=== PATIENT | female | born 1935 | race African-American/Black ===

== ENCOUNTER 2016-09-22 22:23 | Inpatient (IN) | payer MEDICARE, OTHER ==
[~2016-09-22] VITALS: Ht 154.9 cm; Wt 66.0 kg
[2016-09-22 22:40] VITALS: BP 224/102; PULSE 71; RESP 18; TEMP 98.6; O2SAT 97
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
[2016-09-23 00:07] LABS: AUTOMATED NEUTROPHIL # 2.5 TH/MM3 (1.8-7.7); BASOPHIL % 0.5 % (0.0-2.0); EOSINOPHIL # 0.1 TH/MM3 (0-0.4); EOSINOPHIL % 1.4 % (0.0-4.0); HEMATOCRIT 35.4 % (35.0-46.0); HEMO FLAGS DIFF FINAL; LYMPH % 31.9 % (9.0-44.0); LYMPHOCYTE # 1.3 TH/MM3 (1.0-4.8); MEAN CELL VOLUME 90.6 FL (80.0-100.0); MEAN CORPUSCULAR HGB CONC 33.1 % (32.0-36.0); MONO % 7.1 % (0.0-8.0); NEUT % 59.1 % (16.0-70.0); PLATELET COUNT 211 TH/MM3 (150-450); RED BLOOD COUNT 3.91 MIL/MM3 (4.00-5.30); RED CELL DISTRIBUTION WIDTH 16.2 % (11.6-17.2); WHITE BLOOD COUNT 4.2 TH/MM3 (4.0-11.0)
[2016-09-23 00:15] LABS: ALT (GPT) 18 U/L (10-53); ANION GAP 7 MEQ/L (5-15); AST (GOT) 19 U/L (15-37); BICARBONATE 29.3 MEQ/L (21.0-32.0); BLOOD UREA NITROGEN 8 MG/DL (7-18); CHLORIDE 105 MEQ/L (98-107); GLOMERULAR FILTRATION RATE 86 ML/MIN (>89); SODIUM (NA) 141 MEQ/L (136-145)
[2016-09-23 00:16] LABS: BLOOD, URINE NEG (NEG); GLUCOSE,URINE NEG (NEG); KETONE, URINE NEG (NEG); NITRITE,URINE NEG (NEG); SQUAMOUS EPITHELIAL CELL URINE <1 /hpf (0-5); URINE COLOR LIGHT-YELLOW (YELLW/STRAW)
[2016-09-23 00:17] LABS: ALKALINE PHOSPHATASE 110 U/L (45-117); TOTAL BILIRUBIN ADULT 0.4 MG/DL (0.2-1.0)
[2016-09-23 00:20] LABS: ALCOHOL LESS THAN 3 MG/DL (0-5)
[2016-09-23 00:22] LABS: COMMENT (UR) CULT NOT INDICATED; CULTURE IF INDICATED CULT NOT INDICATED
[2016-09-23 04:00] VITALS: BP 230/109; PULSE 86; RESP 18
[2016-09-23] MEDS ORDERED: amLODIPine BESYLATE 5 MG TAB PO ONE (04:00)
[2016-09-23 06:04] VITALS: BP 179/86
[2016-09-23 07:58] VITALS: BP 180/88; PULSE 84; RESP 17; O2SAT 97
[2016-09-23] MEDS ORDERED: ACETAMINOPHEN 325 MG TAB PO PRN (13:15)
[2016-09-23] MEDS ORDERED: LORazepam 1 MG TAB PO PRN (13:15)
[2016-09-23] MEDS ORDERED: LORazepam 0.5 MG TAB PO PRN (13:15)
[2016-09-23] MEDS ORDERED: ALUMINUM/MAGNESIUM/SIMETH 30 ML CUP PO PRN (13:15)
[2016-09-23] MEDS ORDERED: MAGNESIUM HYDROXIDE SUSP 30 ML CUP PO PRN (13:15)
[2016-09-23] MEDS ORDERED: LORazepam 2 MG/ML VIAL IM PRN ×2 (13:15)
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
[2016-09-23 14:05] VITALS: BP 182/84; PULSE 88; RESP 17; O2SAT 97
[2016-09-23 14:15] VITALS: BP 204/109; PULSE 69; RESP 19; TEMP 99.3; O2SAT 97
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
[2016-09-24 05:59] VITALS: BP 169/93; PULSE 66; RESP 16; TEMP 96.7; O2SAT 99
[2016-09-24 06:00] VITALS: RESP 16
[2016-09-24] MEDS ORDERED: ALUMINUM/MAGNESIUM/SIMETH 30 ML CUP PO PRN (10:15)
[2016-09-24] MEDS ORDERED: MAGNESIUM HYDROXIDE SUSP 30 ML CUP PO PRN (10:15)
[2016-09-24] MEDS ORDERED: ACETAMINOPHEN 325 MG TAB PO PRN (10:15)
[2016-09-24] MEDS ORDERED: risperiDONE 0.5 MG TAB PO SCH (11:00)
--- NOTE | 2016-09-24 11:14 | EKG ---
Date Performed: 09/23/2016 Time Performed: 14:15:31 PTAGE: 80 years EKG: SINUS BRADYCARDIA POSSIBLE RIGHT VENTRICULAR CONDUCTION DELAY MINIMAL VOLTAGE CRITERIA FOR LVH, CONSIDER NORMAL VARIANT BORDERLINE ECG NO PREVIOUS TRACING DOCTOR: Praveen Arvizu Interpretating Date/Time 09/24/2016 11:12:26
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
[2016-09-24 19:24] VITALS: BP 102/55; PULSE 74; RESP 18; TEMP 97.8; O2SAT 98
[2016-09-25 06:05] VITALS: BP 168/88; PULSE 86; RESP 14; TEMP 97.7; O2SAT 97
--- NOTE | 2016-09-25 13:22 | HHI.PR ---
Subjective Remarks Uncontrolled HTN. Patient was noted with elevated BP, started meds. She is in the chair, denies any motor or sensory deficit. no headache or change in vision. No n/v/d/c. Denies chest pain or sob. Objective Vitals Vital Signs Date Time Temp Pulse Resp B/P Pulse Ox O2 Delivery O2 Flow Rate FiO2 09/25/16 06:05 97.7 86 14 168/88 97 09/24/16 19:24 97.8 74 18 102/55 98 I/O 09/24/16 09/24/16 09/24/16 09/25/16 09/25/16 09/25/16 07:00 15:00 23:00 07:00 15:00 23:00 Intake Total 240 ml 240 ml 360 ml Balance 240 ml 240 ml 360 ml Intake Oral 240 ml 240 ml 360 ml # Voids 2 Result Diagram: 09/22/16 2345 09/22/16 2345 Objective Remarks GENERAL: Awake and alert oriented to person well-developed patient, in no apparent distress. CARDIOVASCULAR: Regular rhythm without murmurs, gallops, or rubs. Heart rate 58/m RESPIRATORY: Clear to auscultation. Breath sounds equal bilaterally. No wheezes , rales, or rhonchi. GASTROINTESTINAL: Abdomen soft, non-tender, nondistended. No hepato-splenomegaly , or palpable masses. No guarding. MUSCULOSKELETAL: Extremities without clubbing, cyanosis, or edema. No joint tenderness, effusion, or edema noted. No calf tenderness. Negative Homans sign bilaterally. NEUROLOGICAL: Awake and alert. Cranial nerves II through XII intact. Motor and sensory grossly within normal limits. Five out of 5 muscle strength in all muscle groups. Normal speech. Gait slow but steady A/P Assessment and Plan 80-year-old female admitted for Dementia - psychiatry following Hypertension uncontrolled - patient denies any history but unreliable. no family at bedside. EKG no ischemic changes. Chest x-ray reviewed no infiltrates Patient received amlodipine 5 mg by mouth at the ER will monitor. Start amlodipine 5 mg po daily as BP in uncontrolled. Monitor and adjust meds as indicated Heart healthy diet Thank you for this consult we'll follow patient in-house with you Discussed with the patient, nurse. Arleth Lara MD Sep 25, 2016 13:22
[2016-09-25] MEDS: amLODIPine BESYLATE 5 MG TAB PO SCH (13:32)
--- NOTE | 2016-09-25 15:06 | HHI.PYPN ---
Subjective Remarks Patient seen in her room with medical student Krista. Patient calm, quite soft spoken, but cooperative. When discussing her living situation she did state that her grandson might be HARM HER. SHE IS SOMEWHAT CONFUSED ALSO ABOUT HER SON AND WAS GOING ON WITH HIM. SHE IS SHOWING MIXED COMPLIANCE WITH MEDICATION. FOR NOW CONTINUE TREATMENT Review of Systems Except as stated in HPI: all other systems reviewed are Neg Objective Alert: Yes [place]: Person, Place, Date (vaguely) Mood: Calm, Other (vigilant) Affect: Other (slight decreased range and intensity) Memory Intact: Comment (poor) Hallucinations: Other (denies) Delusions: Yes Delusion Type: Paranoid (vague feeling grandson may be poisoning her) Suicidal: Ideation (denies) Homicidal: Ideation (denies) Insight/Judgment Poor Vitals/IOs Vital Signs Date Time Temp Pulse Resp B/P Pulse Ox O2 Delivery O2 Flow Rate FiO2 09/25/16 06:05 97.7 86 14 168/88 97 09/23/16 14:05 Room Air Intake and Output 09/24/16 09/24/16 09/25/16 08:00 16:00 00:00 Intake Total 240 ml 240 ml Balance 240 ml 240 ml Assessment & Plan Problem List: (1) Dementia in other diseases classified elsewhere with behavioral disturbance ICD Code: F02.81 (2) Alzheimer's dementia with behavioral disturbance ICD Code: G30.8 Assessment & Plan Estimated LOS: days patient continues confused and demented in no behavior problems noted at this time from now continue treatment Justification for Cont. Inpt. At this time patient would decompensate in place to the lower level of care Discharge Planning To be determined Magdy Blackwood MD Sep 25, 2016 15:06
[2016-09-25 16:24] VITALS: BP 189/88; PULSE 51; RESP 18; TEMP 97.5; O2SAT 97
[2016-09-25 20:00] VITALS: BP 159/81
[2016-09-26 06:00] VITALS: BP 153/70; PULSE 59; RESP 18; TEMP 97.4; O2SAT 97
[2016-09-26] MEDS: amLODIPine BESYLATE 5 MG TAB PO SCH ×3 (09:49→11:40)
[2016-09-26 18:00] VITALS: BP 184/87; PULSE 56; TEMP 98.7; O2SAT 95
--- NOTE | 2016-09-26 20:31 | HHI.PYPN ---
Subjective Remarks Pt seen and discussed with staff. SHe refused medications and labs today. No agitation or behavioral problems.She has been isolative to her room but comes out into milieu occasionally. Objective Alert: Yes [place]: Person Mood: Calm, Other (vigilant) Affect: Other (slight decreased range and intensity) Memory Intact: Comment (poor) Hallucinations: Other (denies) Delusions: Yes Delusion Type: Paranoid (vague feeling grandson may be poisoning her) Suicidal: Ideation (denies) Homicidal: Ideation (denies) Insight/Judgment poor Vitals/IOs Vital Signs Date Time Temp Pulse Resp B/P Pulse Ox O2 Delivery O2 Flow Rate FiO2 09/26/16 06:00 97.4 59 18 153/70 97 09/23/16 14:05 Room Air Intake and Output 09/25/16 09/25/16 09/25/16 07:59 15:59 23:59 Intake Total 360 ml 1560 ml 720 ml Balance 360 ml 1560 ml 720 ml Assessment & Plan Problem List: (1) Dementia in other diseases classified elsewhere with behavioral disturbance ICD Code: F02.81 (2) Alzheimer's dementia with behavioral disturbance ICD Code: G30.8 Assessment & Plan Continue current tx plan. Estimated LOS: days Justification for Cont. Inpt. risk of decompensation Tiffani Trejo MD Sep 26, 2016 20:30
[2016-09-26 21:00] VITALS: BP 227/99; PULSE 58; RESP 18; O2SAT 95
[2016-09-26] MEDS ORDERED: NITROGLYCERIN 2% OINT 1 GM PACKET TOPICAL ONE (21:30)
[2016-09-26 23:00] VITALS: BP 164/92; PULSE 66
[2016-09-27 06:00] VITALS: BP 137/67; PULSE 71; RESP 16; TEMP 97.7; O2SAT 95
--- NOTE | 2016-09-27 16:17 | HHI.PYPN ---
Subjective Remarks Pt seen and discussed with staff. She refused to come out for breakfast and has been refusing medications, but did take norvasc. She insists that she does not need any type of medication. No behavioral problems. Objective Alert: Yes [place]: Person Mood: Calm Affect: Other (slight decreased range and intensity) Memory Intact: Comment (poor) Hallucinations: Other (denies) Delusions: Yes Delusion Type: Paranoid Suicidal: Ideation (denies) Homicidal: Ideation (denies) Insight/Judgment poor Vitals/IOs Vital Signs Date Time Temp Pulse Resp B/P Pulse Ox O2 Delivery O2 Flow Rate FiO2 09/27/16 06:00 97.7 71 16 137/67 95 09/23/16 14:05 Room Air Intake and Output 09/26/16 09/26/16 09/27/16 08:00 16:00 00:00 Intake Total 720 ml Balance 720 ml Assessment & Plan Problem List: (1) Dementia in other diseases classified elsewhere with behavioral disturbance ICD Code: F02.81 (2) Alzheimer's dementia with behavioral disturbance ICD Code: G30.8 Assessment & Plan Continue current tx plan. Estimated LOS: days Justification for Cont. Inpt. risk of decompensation Tiffani Trejo MD Sep 27, 2016 16:17
[2016-09-27 18:00] VITALS: BP 203/91; PULSE 66; RESP 18; TEMP 98.2; O2SAT 100
[2016-09-27 18:53] VITALS: BP 96/51; PULSE 84; RESP 17; TEMP 98.2; O2SAT 97
[2016-09-27 20:05] VITALS: BP 184/94
--- NOTE | 2016-09-28 09:38 | HHI.PYPN ---
Subjective Remarks Patient seen in her room with nurse Priyanka, chart reviewed, patient showing mixed compliance with medication. Patient continues to isolate sitting for extended periods of time in her room. At times resistant to treatment. Though no other significant behavioral problems. She continues delusional confused related to experiences with her grandson and her son. We'll be meeting with treatment team later today. For now continue treatment Review of Systems Except as stated in HPI: all other systems reviewed are Neg Objective Alert: Yes [place]: Person Mood: Calm Affect: Other (slight decreased range and intensity) Memory Intact: Comment (poor) Hallucinations: Other (denies) Delusions: Yes Delusion Type: Paranoid Suicidal: Ideation (denies) Homicidal: Ideation (denies) Insight/Judgment Very poor Vitals/IOs Vital Signs Date Time Temp Pulse Resp B/P Pulse Ox O2 Delivery O2 Flow Rate FiO2 09/27/16 20:05 184/94 09/27/16 18:53 98.2 84 17 97 Intake and Output 09/27/16 09/27/16 09/27/16 07:59 15:59 23:59 Intake Total 1200 ml Balance 1200 ml Assessment & Plan Problem List: (1) Dementia in other diseases classified elsewhere with behavioral disturbance ICD Code: F02.81 (2) Alzheimer's dementia with behavioral disturbance ICD Code: G30.8 Assessment & Plan Estimated LOS: days patient continues confused and disoriented. With significant isolation. Spending long periods of time in her room. Mixed compliance with medication. Justification for Cont. Inpt. At this time patient will decompensate placed in the lower level of care Discharge Planning To be determined Magdy Blackwood MD Sep 28, 2016 09:38
[2016-09-28 09:53] VITALS: BP 173/86; PULSE 61
[2016-09-28] MEDS: amLODIPine BESYLATE 5 MG TAB PO SCH (09:55)
[2016-09-28 11:37] VITALS: BP 151/74; PULSE 54
[2016-09-28] MEDS ORDERED: REMOVE OLD PATCH T-DERMAL SCH (14:00)
[2016-09-28] MEDS ORDERED: cloNIDine HCL 0.1 MG/24 HR PATCH T-DERMAL SCH (14:00)
--- NOTE | 2016-09-28 15:46 | PD.TTN ---
Present for Treatment Team Treatment Team Staff: Provider (Dr Blackwood ), Nurse (Priyanka ), Psych Therapist (Lavern), Occupational Therapist (Myrna) Patient Problems 1. Discharge planning 2. Medication compliance 3. Knowledge deficit 4. Lack of coping skills Progress Toward Goals Provider Input: Provider wanted to know about placement vs going back home discussed meds with nurse as family does not want Risperdal Nurse Input: Nurse said still no consent for Risperdal pt is overall calm and compliant at times confused and at times appearing alert and oriented Psych Therapist Input: family called and wanted to know what happened and if pt is being placed in snf they believe they can no longer care for her Occupational Therapist Input: somewhat seclusive came to some groups Lavern Angelo YARD SUPERVISOR Sep 28, 2016 15:46
--- NOTE | 2016-09-28 17:54 | HHI.PR ---
Subjective Remarks Patient denies cp/sob denies headache or dizziness bp has been elevated - as per RN patient refusing her antihypertensive medication over the weekend. patient is seclusive - denied to go out to dinner Objective Vitals Vital Signs Date Time Temp Pulse Resp B/P Pulse Ox O2 Delivery O2 Flow Rate FiO2 09/28/16 11:37 54 151/74 09/28/16 09:53 61 173/86 09/27/16 20:05 184/94 09/27/16 18:53 98.2 84 17 96/51 97 09/27/16 18:00 98.2 66 18 203/91 100 I/O 09/27/16 09/27/16 09/27/16 09/28/16 09/28/16 09/28/16 06:59 14:59 22:59 06:59 14:59 22:59 Intake Total 1200 ml 480 ml Output Total 2 ml Balance 1200 ml -2 ml 480 ml Intake Oral 1200 ml 480 ml Output Urine Total 2 ml # Voids 2 2 Objective Remarks refused examination. Medications and IVs Current Medications Medications (Trade) Dose Ordered Sig/Kp Route Start Time Stop Time Status Last Admin (Ativan) 0.5 mg Q12H PRN PO 09/23/16 13:15 Hold (Ativan Inj) 0.5 mg Q12H PRN IM 09/23/16 13:15 Hold (Tylenol) 650 mg Q4H PRN PO 09/24/16 10:15 (Milk Of Magnesia Liq) 30 ml DAILY PRN PO 09/24/16 10:15 (Mag-Al Plus Susp Liq) 30 ml Q6H PRN PO 09/24/16 10:15 (risperDAL) 0.5 mg BID PO 09/24/16 11:00 Hold (Norvasc) 5 mg DAILY PO 09/25/16 10:00 09/28/16 09:55 (Catapres-Tts 0.1mg Patch.7d) 1 patch Q7D T-DERMAL 09/28/16 14:00 09/28/16 15:29 Miscellaneous Information 1 Q7D T-DERMAL 09/28/16 14:00 A/P Assessment and Plan 80-year-old female admitted for Dementia - psychiatry following Hypertension uncontrolled - patient denies any history but unreliable. no family at bedside. EKG no ischemic changes. Chest x-ray reviewed no infiltrates Heart healthy diet 09/28 Patient started on amlodipine but refused to take it. BP severely elevated and uncontrolled into the SBP 180's. DC amlopdipine and start Clonidine patch. Continue to monitor BP Tyrell Briones MD Sep 28, 2016 17:54
--- NOTE | 2016-09-29 10:03 | HHI.PYPN ---
Subjective Remarks Patient seen in the meza with nurse Sinai, counselor Lavern, and medical student Krista. Patient angry irritable stubborn. Standing at a very irritable attitude stating "I want to go home "refusing to take direction from floor staff. Though she showing no aggressive type behaviors. Family has refused to give permission for Respinol. We'll discontinue that and offer Seroquel 25 mg 9 AM and 4 PM. With permission of health care surrogate/guardian advocate Review of Systems Except as stated in HPI: all other systems reviewed are Neg Objective Alert: Yes [place]: Person Mood: Calm Affect: Other (slight decreased range and intensity) Memory Intact: Comment (poor) Hallucinations: Other (denies) Delusions: Yes Delusion Type: Paranoid Suicidal: Ideation (denies) Homicidal: Ideation (denies) Insight/Judgment Very poor Vitals/IOs Vital Signs Date Time Temp Pulse Resp B/P Pulse Ox O2 Delivery O2 Flow Rate FiO2 09/28/16 11:37 54 151/74 09/27/16 18:53 98.2 17 97 Intake and Output 09/28/16 09/28/16 09/29/16 08:00 16:00 00:00 Intake Total 240 ml 240 ml 1680 ml Output Total 2 ml Balance 238 ml 240 ml 1680 ml Assessment & Plan Problem List: (1) Dementia in other diseases classified elsewhere with behavioral disturbance ICD Code: F02.81 (2) Alzheimer's dementia with behavioral disturbance ICD Code: G30.8 Assessment & Plan Estimated LOS: days patient continues confused demented, with some increased irritability and stubbornness today stated that she wanted to be sent home. She medication suggestion above Justification for Cont. Inpt. At this time patient will decompensate if placed in a lower level of care Discharge Planning To be determined Magdy Blackwood MD Sep 29, 2016 10:03
[2016-09-29] MEDS: QUEtiapine FUMARATE 25 MG TAB PO SCH (16:48)
--- NOTE | 2016-09-29 16:56 | HHI.PR ---
Subjective Remarks Bp seems to be improving denies cp/sob denies dizziness states "I am fine" Objective Vitals I/O 09/28/16 09/28/16 09/28/16 09/29/16 09/29/16 09/29/16 07:00 15:00 23:00 07:00 15:00 23:00 Intake Total 480 ml 1680 ml 480 ml Output Total 2 ml 1 ml Balance -2 ml 480 ml 1680 ml 479 ml Intake Oral 480 ml 1680 ml 480 ml Output Urine Total 2 ml 1 ml # Voids 6 1 # Bowel Movements 0 Objective Remarks refused examination. Medications and IVs Current Medications Medications (Trade) Dose Ordered Sig/Kp Route Start Time Stop Time Status Last Admin (Ativan) 0.5 mg Q12H PRN PO 09/23/16 13:15 Hold (Ativan Inj) 0.5 mg Q12H PRN IM 09/23/16 13:15 Hold (Tylenol) 650 mg Q4H PRN PO 09/24/16 10:15 (Milk Of Magnesia Liq) 30 ml DAILY PRN PO 09/24/16 10:15 (Mag-Al Plus Susp Liq) 30 ml Q6H PRN PO 09/24/16 10:15 (Catapres-Tts 0.1mg Patch.7d) 1 patch Q7D T-DERMAL 09/28/16 14:00 09/28/16 15:29 Miscellaneous Information 1 Q7D T-DERMAL 09/28/16 14:00 (SEROquel) 25 mg BID@09,16 PO 09/29/16 16:00 09/29/16 16:48 A/P Assessment and Plan 80-year-old female admitted for Dementia - psychiatry following Hypertension uncontrolled - patient denies any history but unreliable. no family at bedside. EKG no ischemic changes. Chest x-ray reviewed no infiltrates Heart healthy diet 09/28 Patient started on amlodipine but refused to take it. BP severely elevated and uncontrolled into the SBP 180's. DC amlopdipine and start Clonidine patch. Continue to monitor BP. 09/29 BP improving but still elevated - Continue Clonidine patch at same dose for now. Tyrell Briones MD Sep 29, 2016 16:56
[2016-09-29 18:45] VITALS: BP 84/0
[2016-09-29 19:45] VITALS: BP 80/0
[2016-09-29 19:50] VITALS: BP 82/52; PULSE 48; O2SAT 96
[2016-09-29 20:21] VITALS: BP 158/82; PULSE 60; RESP 18
[2016-09-29] MEDS ORDERED: SODIUM CHLORIDE 0.9% 500 ML IV ONE (20:30)
[2016-09-29] MEDS ORDERED: MORPHINE SULFATE 4 MG/ML INJ IV PUSH ONE (20:30)
[2016-09-29] MEDS ORDERED: NITROGLYCERIN 0.4 MG SL 25 TABS/BTL SL PRN (20:30)
--- NOTE | 2016-09-29 20:50 | RADRPT ---
EXAM DATE/TIME: 09/29/2016 20:25 [facility] COMPARISON: No previous studies available for comparison. INDICATIONS : Shortness of breath. MEDICAL HISTORY : Dementia SURGICAL HISTORY : None. ENCOUNTER: Initial ACUITY: 1 day PAIN SCORE: 0/10 LOCATION: Bilateral chest FINDINGS: No infiltrate, effusion or pneumothorax demonstrated. Heart size within normal limits. Thoracic aorta is tortuous. CONCLUSION: No evidence of acute cardiopulmonary disease. Magdy Scales MD on September 29, 2016 at 20:48 Board Certified Radiologist. This report was verified electronically.
[2016-09-29] MEDS ORDERED: SODIUM CHLORIDE 0.9% 500 ML- REPEAT BAG IV ONE (21:00)
[2016-09-29 22:49] LABS: AUTOMATED NEUTROPHIL # 3.1 TH/MM3 (1.8-7.7); BASOPHIL % 0.8 % (0.0-2.0); EOSINOPHIL % 0.8 % (0.0-4.0); HEMATOCRIT 34.1 % (35.0-46.0); HEMO FLAGS DIFF FINAL; LYMPH % 19.4 % (9.0-44.0); LYMPHOCYTE # 0.8 TH/MM3 (1.0-4.8); MEAN CELL VOLUME 90.6 FL (80.0-100.0); MEAN CORPUSCULAR HEMOGLOBIN 29.6 PG (27.0-34.0); MEAN CORPUSCULAR HGB CONC 32.7 % (32.0-36.0); MONO % 6.9 % (0.0-8.0); NEUT % 72.1 % (16.0-70.0); PLATELET COUNT 185 TH/MM3 (150-450); RED BLOOD COUNT 3.76 MIL/MM3 (4.00-5.30); RED CELL DISTRIBUTION WIDTH 15.9 % (11.6-17.2); WHITE BLOOD COUNT 4.3 TH/MM3 (4.0-11.0)
[2016-09-29 23:13] LABS: ALT (GPT) 17 U/L (10-53); ANION GAP 5 MEQ/L (5-15); AST (GOT) 20 U/L (15-37); BICARBONATE 33.2 MEQ/L (21.0-32.0); BLOOD UREA NITROGEN 14 MG/DL (7-18); CHLORIDE 100 MEQ/L (98-107); GLOMERULAR FILTRATION RATE 87 ML/MIN (>89); POTASSIUM 3.8 MEQ/L (3.5-5.1); SODIUM (NA) 138 MEQ/L (136-145)
[2016-09-29 23:15] LABS: ALKALINE PHOSPHATASE 98 U/L (45-117); TOTAL BILIRUBIN ADULT 0.4 MG/DL (0.2-1.0)
[2016-09-29 23:26] LABS: CREATINE KINASE 63 U/L (26-192)
--- NOTE | 2016-09-30 00:15 | EKG ---
Date Performed: 09/29/2016 Time Performed: 21:14:20 PTAGE: 80 years EKG: SINUS BRADYCARDIA WITH FIRST DEGREE AV BLOCK ABNORMAL ECG PREVIOUS TRACING : 09/23/2016 14.15 Compared to prior tracing no significant change DOCTOR: Mono Maradiaga Interpretating Date/Time 09/30/2016 00:14:51
[2016-09-30 01:00] VITALS: BP 174/85; PULSE 51; RESP 17; TEMP 98.1; O2SAT 100
--- NOTE | 2016-09-30 02:25 | HHI.PR ---
Addendum to Inpatient Note Addendum Reason: Additional Documentation Additional Information S: Dr. Mcdermott notified me of Drew called in psychiatry unit at around 8pm on 09/29. Drew was called for hypotension. Apparently, the patient had refused vitals for the past 2 days. At 6:45 PM, patient was noted to be alert, oriented , and conversational with the nursing staff. Per nursing staff, her skin was warm and dry at that time. Then, at 7:45 PM, patient was noted to be sweaty and altered. Blood pressure was noted to be 86/52, with a heart rate in the 40s. Drew was called at that time. She had recently taken Seroquel for the first time around 4:48pm. Around when the DevynT was called, clonidine patch was removed. Patient does not answer my questions. O: Vitals: bp 86/52, pulse 50s, O2 sat > 95% on RA Gen: Elderly woman, diaphoretic, slumped over in chair HEENT: Moist mucous membranes Cardiovascular: Bradycardic rate and regular rhythm Respiratory: Lungs clear to auscultation bilaterally with transmitted upper airway sounds Extremities: Nontender, nonedematous A/P: 80-year-old female with a history of dementia and hypertension had DevynT called for hypotension most likely because of medication side effect. However, differential is broad and includes CVA, MT, PE, etc. EKG, chest x-ray, UA, blood culture, lactic acid, CMP, CBC, CT brain without IV contrast, troponin, CK-MB, CPK, normal saline IV bolus Transfer to [facility] psych unit Nurse to call patient's family Addendum: Spoke with Drew nurse after patient transfer. Apparently, patient blood pressure spontaneously improved as did her mental status. She suddenly became alert, oriented, conversational, and gave the Drew nurse to [facility] prior to leaving. [facility] asked if we could d/c the CT of the head. I agreed that it was no longer indicated at this time. Ric Gaines MD R2 Sep 30, 2016 02:25
--- NOTE | 2016-09-30 02:36 | RADRPT ---
EXAM DATE/TIME: 09/30/2016 02:23 [facility] COMPARISON: No previous studies available for comparison. INDICATIONS : Altered mental status. RADIATION DOSE: 56.36 CTDIvol (mGy) MEDICAL HISTORY : Dementia. Cardiovascular disease Hypertension. SURGICAL HISTORY : None. ENCOUNTER: Initial ACUITY: 1 day PAIN SCALE: 0/10 LOCATION: cranial TECHNIQUE: Multiple contiguous axial images were obtained of the head. Using automated exposure control and adj ustment of the mA and/or kV according to patient size, radiation dose was kept as low as reasonably a chievable to obtain optimal diagnostic quality images. DICOM format image data is available electro nically for review and comparison. FINDINGS: CEREBRUM: The ventricles are normal for age. No evidence of midline shift, mass lesion, hemorrhage or acute in farction. Prominence and diffuse hypodensity in the supratentorial white matter. No extra-axial flu id collections are seen. POSTERIOR FOSSA: The cerebellum and brainstem are intact. The 4th ventricle is midline. The cerebellopontine angle i s unremarkable. EXTRACRANIAL: The visualized portion of the orbits is intact. SKULL: The calvaria is intact. No evidence of skull fracture. CONCLUSION: No acute findings. Significant hypodensity of the supratentorial white matter suggesting ischemic de myelination. Leodan Silverio MD on September 30, 2016 at 2:33 Board Certified Radiologist. This report was verified electronically.
[2016-09-30 05:49] VITALS: BP 149/67; PULSE 64; RESP 17; TEMP 98.3; O2SAT 97
--- NOTE | 2016-09-30 08:20 | HHI.PYPN ---
Subjective Remarks Patient seen in her room the floor staff, chart review, patient transferred last evening from 2500 to 4e because of labile severe hypertension with hypotensive episodes. Medicine service is now following patient daily and a dressing that issue. Patient seen by me today she is sitting calmly in her bed continues diffusely confused and disoriented. Though no behavioral problem. Patient compliant with her psychotropic medication. Patient at this time is scheduled for [place] [facility] tomorrow for now continue treatment Review of Systems Except as stated in HPI: all other systems reviewed are Neg Objective Alert: Yes [place]: Person Mood: Calm Affect: Other (slight decreased range and intensity) Memory Intact: Comment (poor) Hallucinations: Other (denies) Delusions: Yes Delusion Type: Paranoid Suicidal: Ideation (denies) Homicidal: Ideation (denies) Insight/Judgment Very poor Labs Test 09/29/16 22:34 White Blood Count 4.3 TH/MM3 Red Blood Count 3.76 MIL/MM3 Hemoglobin 11.1 GM/DL Hematocrit 34.1 % Mean Corpuscular Volume 90.6 FL Mean Corpuscular Hemoglobin 29.6 PG Mean Corpuscular Hemoglobin 32.7 % Concent Red Cell Distribution Width 15.9 % Platelet Count 185 TH/MM3 Mean Platelet Volume 8.8 FL Neutrophils (%) (Auto) 72.1 % Lymphocytes (%) (Auto) 19.4 % Monocytes (%) (Auto) 6.9 % Eosinophils (%) (Auto) 0.8 % Basophils (%) (Auto) 0.8 % Neutrophils # (Auto) 3.1 TH/MM3 Lymphocytes # (Auto) 0.8 TH/MM3 Monocytes # (Auto) 0.3 TH/MM3 Eosinophils # (Auto) 0.0 TH/MM3 Basophils # (Auto) 0.0 TH/MM3 CBC Comment DIFF FINAL Differential Comment Sodium Level 138 MEQ/L Potassium Level 3.8 MEQ/L Chloride Level 100 MEQ/L Carbon Dioxide Level 33.2 MEQ/L Anion Gap 5 MEQ/L Blood Urea Nitrogen 14 MG/DL Creatinine 0.77 MG/DL Estimat Glomerular Filtration 87 ML/MIN Rate Random Glucose 113 MG/DL Lactic Acid Level 1.8 mmol/L Calcium Level 8.7 MG/DL Total Bilirubin 0.4 MG/DL Aspartate Amino Transf 20 U/L (AST/SGOT) Alanine Aminotransferase 17 U/L (ALT/SGPT) Alkaline Phosphatase 98 U/L Total Creatine Kinase 63 U/L Troponin I LESS THAN 0.02 NG/ML Total Protein 7.1 GM/DL Albumin 3.3 GM/DL Date/Time Procedure Status Source Growth 09/29/16 22:34 Aerobic Blood Culture Received Blood Peripheral Pending 09/29/16 22:34 Anaerobic Blood Culture Received Blood Peripheral Pending Vitals/IOs Vital Signs Date Time Temp Pulse Resp B/P Pulse Ox O2 Delivery O2 Flow Rate FiO2 09/30/16 05:49 98.3 64 17 149/67 97 Intake and Output 09/29/16 09/29/16 09/30/16 08:00 16:00 00:00 Intake Total 0 ml 480 ml 480 ml Output Total 1 ml Balance 0 ml 479 ml 480 ml Assessment & Plan Problem List: (1) Dementia in other diseases classified elsewhere with behavioral disturbance ICD Code: F02.81 (2) Alzheimer's dementia with behavioral disturbance ICD Code: G30.8 Assessment & Plan Estimated LOS: days patient continues demented and confused, though no behavior problems at this time, is now being followed intensely by medicine to address her hypertensive issues. Patient also schedule for [facility] [facility] tomorrow Justification for Cont. Inpt. At this time patient will decompensate if placed in a lower level of care Discharge Planning To be determined Magdy Blackwood MD Sep 30, 2016 08:20
[2016-09-30] MEDS: QUEtiapine FUMARATE 25 MG TAB PO SCH ×2 (09:00→16:00)
[2016-09-30] MEDS ORDERED: cloNIDine HCL 0.2 MG/24 HR PATCH T-DERMAL SCH (10:00)
[2016-09-30] MEDS ORDERED: cloNIDine HCL 0.1 MG/24 HR PATCH T-DERMAL SCH (10:00)
--- NOTE | 2016-09-30 15:08 | HHI.PR ---
Subjective Remarks deferred entry - patient seen at 12:20 pm Patient had an episode of hypotension last night bp now is much improved patient denies cp/sob Objective Vitals Vital Signs Date Time Temp Pulse Resp B/P Pulse Ox O2 Delivery O2 Flow Rate FiO2 09/30/16 05:49 98.3 64 17 149/67 97 09/30/16 01:00 98.1 51 17 174/85 100 09/29/16 20:21 60 18 158/82 09/29/16 19:50 48 82/52 96 09/29/16 19:45 80/0 I/O 09/29/16 09/29/16 09/29/16 09/30/16 09/30/16 09/30/16 07:00 15:00 23:00 07:00 15:00 23:00 Intake Total 480 ml 480 ml 240 ml 480 ml Output Total 1 ml Balance 479 ml 480 ml 240 ml 480 ml Intake Oral 480 ml 480 ml 240 ml 480 ml Output Urine Total 1 ml # Voids 1 2 2 2 Result Diagram: 09/29/16223309/29/162233 Imaging awake and alert, conversant S1S2 RRR no MRG Clear lung BL Abdomen is soft, NT, ND extremities have no edema Objective Remarks refused examination. Medications and IVs Current Medications Medications (Trade) Dose Ordered Sig/Kp Route Start Time Stop Time Status Last Admin (Ativan) 0.5 mg Q12H PRN PO 09/23/16 13:15 Hold (Ativan Inj) 0.5 mg Q12H PRN IM 09/23/16 13:15 Hold (Tylenol) 650 mg Q4H PRN PO 09/24/16 10:15 (Milk Of Magnesia Liq) 30 ml DAILY PRN PO 09/24/16 10:15 (Mag-Al Plus Susp Liq) 30 ml Q6H PRN PO 09/24/16 10:15 (SEROquel) 25 mg BID@09,16 PO 09/29/16 16:00 09/30/16 09:00 (Nitrostat Sl) 0.4 mg Q5M PRN SL 09/29/16 20:30 A/P Assessment and Plan 80-year-old female admitted for Dementia - psychiatry following Hypertension uncontrolled - patient denies any history but unreliable. no family at bedside. EKG no ischemic changes. Chest x-ray reviewed no infiltrates Heart healthy diet 09/28 Patient started on amlodipine but refused to take it. BP severely elevated and uncontrolled into the SBP 180's. 09/30 Hypotensive episode after being on clonidine patch. Clonidine patch removed and discontinued. Monitor vital signs for now. Will start on Vasotec PRN. Hypotension - Likely medication induced. Clonidine patch discontinued. BP much improved after removal of patch. Continue to monitor BP. Abnormal head CT - Head CT showed no acute findings, however there is significant hypodensity of the supratentorial white matter suggesting ischemic demyelination. I will consult neurology for further recommendations. Tyrell Briones MD Sep 30, 2016 15:08
[2016-10-01 06:18] VITALS: BP 137/71; PULSE 93; RESP 15; TEMP 97.8; O2SAT 94
[2016-10-01] MEDS: QUEtiapine FUMARATE 25 MG TAB PO SCH ×2 (09:00→16:00)
--- NOTE | 2016-10-01 13:18 | HHI.PYPN ---
Subjective Remarks Patient seen today in [employer] court. Patient retained by printed circuit designer, getting advocate appointed, patient did have a vacation [facility] hosp[facility] home care coordinator with her and court. Patient became somewhat agitated and confused when the apartment leasing consultant attempted to explain his decision to retain her under the Pleitez act. When patient was returned to [address] she continued agitated throwing a chair necessitating as needed 0.5 mg Ativan IM Review of Systems Except as stated in HPI: all other systems reviewed are Neg Objective Alert: Yes [place]: Person Mood: Calm Affect: Other (slight decreased range and intensity) Memory Intact: Comment (poor) Hallucinations: Other (denies) Delusions: Yes Delusion Type: Paranoid Suicidal: Ideation (denies) Homicidal: Ideation (denies) Insight/Judgment Very poor Labs Date/Time Procedure Status Source Growth 09/29/16 22:34 Aerobic Blood Culture - Preliminary Resulted Blood Peripheral NO GROWTH IN 2 DAYS 09/29/16 22:34 Anaerobic Blood Culture - Preliminary Resulted Blood Peripheral NO GROWTH IN 2 DAYS Vitals/IOs Vital Signs Date Time Temp Pulse Resp B/P Pulse Ox O2 Delivery O2 Flow Rate FiO2 10/01/16 06:18 97.8 93 15 137/71 94 Intake and Output 09/30/16 09/30/16 10/01/16 08:00 16:00 00:00 Intake Total 480 ml 240 ml 120 ml Balance 480 ml 240 ml 120 ml Assessment & Plan Problem List: (1) Dementia in other diseases classified elsewhere with behavioral disturbance ICD Code: F02.81 (2) Alzheimer's dementia with behavioral disturbance ICD Code: G30.8 Assessment & Plan Estimated LOS: days patient continues confused demented at times labile and irritable. Was retained in [employer] court by printed circuit designer. Kristie to be guardian advocate Justification for Cont. Inpt. At this time patient would decompensate if place to the lower level of care Discharge Planning To be determined Magdy Blackwood MD Oct 01, 2016 13:18
--- NOTE | 2016-10-01 14:25 | HHI.PR ---
Subjective Remarks No complaints - denies cp/sob Denies cough Bp better Objective Vitals Vital Signs Date Time Temp Pulse Resp B/P Pulse Ox O2 Delivery O2 Flow Rate FiO2 10/01/16 06:18 97.8 93 15 137/71 94 I/O 09/30/16 09/30/16 09/30/16 10/01/16 10/01/16 10/01/16 07:00 15:00 23:00 07:00 15:00 23:00 Intake Total 240 ml 480 ml 120 ml 240 ml Balance 240 ml 480 ml 120 ml 240 ml Intake Oral 240 ml 480 ml 120 ml 240 ml # Voids 2 2 2 Result Diagram: 09/29/16 2234 09/29/16 2234 Imaging Last Impressions Head CT 09/30/16 0000 Signed Impressions: Service Date/Time: Friday, September 30, 2016 02:23 - CONCLUSION: No acute findings. Significant hypodensity of the supratentorial white matter suggesting ischemic demyelination. Leodan Silverio MD Chest X-Ray 09/29/16 0000 Signed Impressions: Service Date/Time: Thursday, September 29, 2016 20:25 - CONCLUSION: No evidence of acute cardiopulmonary disease. Magdy Scales MD Objective Remarks refused examination. Medications and IVs Current Medications Medications (Trade) Dose Ordered Sig/Kp Route Start Time Stop Time Status Last Admin (Ativan) 0.5 mg Q12H PRN PO 09/23/16 13:15 Hold (Ativan Inj) 0.5 mg Q12H PRN IM 09/23/16 13:15 Hold (Tylenol) 650 mg Q4H PRN PO 09/24/16 10:15 (Milk Of Magnesia Liq) 30 ml DAILY PRN PO 09/24/16 10:15 (Mag-Al Plus Susp Liq) 30 ml Q6H PRN PO 09/24/16 10:15 (SEROquel) 25 mg BID@09,16 PO 09/29/16 16:00 10/01/16 09:00 (Nitrostat Sl) 0.4 mg Q5M PRN SL 09/29/16 20:30 A/P Assessment and Plan 80-year-old female admitted for Dementia - psychiatry following Uncontrolled htn- patient denies any history but unreliable. no family at bedside. EKG no ischemic changes. Chest x-ray reviewed no infiltrates Heart healthy diet 09/28 Patient started on amlodipine but refused to take it. BP severely elevated and uncontrolled into the SBP 180's. 09/30 Hypotensive episode after being on clonidine patch. Clonidine patch removed and discontinued. Monitor vital signs for now. Will start on Vasotec PRN. 10/01 Bp much stable off clonidine patch. Continue to monitor BP. Hypotension - Likely medication induced. Clonidine patch discontinued. BP much improved after removal of patch. Continue to monitor BP. Abnormal head CT - Head CT showed no acute findings, however there is significant hypodensity of the supratentorial white matter suggesting ischemic demyelination. I will consult neurology for further recommendations. - 10/01 neurology recommendations pending. Tyrell Briones MD Oct 01, 2016 14:25
[2016-10-01] MEDS ORDERED: ENALAPRILAT 1.25 MG/ML VIAL IV PUSH PRN (15:00)
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
--- NOTE | 2016-10-02 07:52 | HHI.PYPN ---
Subjective Remarks Patient seen in her room the floor staff. Chart reviewed. It appears medicine services stabilizing patient's blood pressure. She continues no behavioral problems on the unit, though she also remains quite confused and disoriented speaking a mixture of Yi and Creole. For now continue treatment Review of Systems Except as stated in HPI: all other systems reviewed are Neg Objective Alert: Yes [place]: Person Mood: Calm Affect: Other (slight decreased range and intensity) Memory Intact: Comment (poor) Hallucinations: Other (denies) Delusions: Yes Delusion Type: Paranoid Suicidal: Ideation (denies) Homicidal: Ideation (denies) Insight/Judgment Very poor Labs Date/Time Procedure Status Source Growth 09/29/16 22:34 Aerobic Blood Culture - Preliminary Resulted Blood Peripheral NO GROWTH IN 2 DAYS 09/29/16 22:34 Anaerobic Blood Culture - Preliminary Resulted Blood Peripheral NO GROWTH IN 2 DAYS Vitals/IOs Vital Signs Date Time Temp Pulse Resp B/P Pulse Ox O2 Delivery O2 Flow Rate FiO2 10/01/16 06:18 97.8 93 15 137/71 94 Intake and Output 10/01/16 10/01/16 10/02/16 08:00 16:00 00:00 Intake Total 240 ml 1060 ml 480 ml Balance 240 ml 1060 ml 480 ml Assessment & Plan Problem List: (1) Dementia in other diseases classified elsewhere with behavioral disturbance ICD Code: F02.81 (2) Alzheimer's dementia with behavioral disturbance ICD Code: G30.8 Assessment & Plan Estimated LOS: days patient remains confused and demented, though no significant behavioral problems. Except at times refusal to allow blood pressure to be taken. For now continue treatment Justification for Cont. Inpt. At this time patient will decompensate if placed on lower level of care Discharge Planning To be determined Magdy Blackwood MD Oct 02, 2016 07:52
[2016-10-02] MEDS: QUEtiapine FUMARATE 25 MG TAB PO SCH ×2 (08:31→16:00)
--- NOTE | 2016-10-02 13:12 | HHI.PR ---
Subjective Remarks As per RN patient refuses to have blood pressure taken bp seemed to have improved denies cp/sob refuses to answer to questions Objective Vitals I/O 10/01/16 10/01/16 10/01/16 10/02/16 10/02/16 10/02/16 07:00 15:00 23:00 07:00 15:00 23:00 Intake Total 120 ml 1300 ml 480 ml 0 ml Balance 120 ml 1300 ml 480 ml 0 ml Intake Oral 120 ml 1060 ml 480 ml 0 ml Tube Feeding 240 ml # Voids 2 2 1 0 Result Diagram: 09/29/16223309/29/162233 Objective Remarks refused examination. Medications and IVs Current Medications Medications (Trade) Dose Ordered Sig/Kp Route Start Time Stop Time Status Last Admin (Ativan) 0.5 mg Q12H PRN PO 09/23/16 13:15 Hold (Ativan Inj) 0.5 mg Q12H PRN IM 09/23/16 13:15 Hold (Tylenol) 650 mg Q4H PRN PO 09/24/16 10:15 (Milk Of Magnesia Liq) 30 ml DAILY PRN PO 09/24/16 10:15 (Mag-Al Plus Susp Liq) 30 ml Q6H PRN PO 09/24/16 10:15 (SEROquel) 25 mg BID@,16 PO 09/29/16 16:00 10/01/16 09:00 (Nitrostat Sl) 0.4 mg Q5M PRN SL 09/29/16 20:30 (Vasotec Inj) 1.25 mg Q8H PRN IV PUSH 10/01/16 15:00 A/P Assessment and Plan 80-year-old female admitted for Dementia - psychiatry following Uncontrolled htn- patient denies any history but unreliable. no family at bedside. EKG no ischemic changes. Chest x-ray reviewed no infiltrates Heart healthy diet 09/28 Patient started on amlodipine but refused to take it. BP severely elevated and uncontrolled into the SBP 180's. 09/30 Hypotensive episode after being on clonidine patch. Clonidine patch removed and discontinued. Monitor vital signs for now. Will start on Vasotec PRN. 10/01 Bp much stable off clonidine patch. Continue to monitor BP. Hypotension - Likely medication induced. Clonidine patch discontinued. BP much improved after removal of patch. Continue to monitor BP. Abnormal head CT - Head CT showed no acute findings, however there is significant hypodensity of the supratentorial white matter suggesting ischemic demyelination. I will consult neurology for further recommendations. - 10/01 neurology recommendations pending. - appreciate neurology efforts - patient refused neurological evaluation. Discharge Planning As per primary Tyrell Briones MD Oct 02, 2016 13:12
--- NOTE | 2016-10-03 09:54 | HHI.PYPN ---
Subjective Remarks Patient seen for follow-up, chart review. As discussed with nursing staff patient refusing vitals today and refusing medications yesterday. Patient found sitting in hospital bed in casual clothing but recall cooperative interview. Patient states that she been feeling "good" denies any physical complaints at this time denies any problem with urination a bowel movement, reports eating and drinking well. Patient was encouraged to allow staff to take her vitals and treatment and for her to take medications which she was initially resistant to but later agreed. Review of Systems Except as stated in HPI: all other systems reviewed are Neg Objective Alert: Yes [place]: Person Mood: Calm Affect: Other (slight decreased range and intensity) Memory Intact: Comment (impaired) Hallucinations: Other (denies) Delusions: Yes Delusion Type: Paranoid Suicidal: Ideation (denies) Homicidal: Ideation (denies) Insight/Judgment Poor insight, impulse control and judgment Labs Date/Time Procedure Status Source Growth 09/29/16 22:34 Aerobic Blood Culture - Preliminary Resulted Blood Peripheral NO GROWTH IN 3 DAYS 09/29/16 22:34 Anaerobic Blood Culture - Preliminary Resulted Blood Peripheral NO GROWTH IN 3 DAYS Vitals/IOs Vital Signs Date Time Temp Pulse Resp B/P Pulse Ox O2 Delivery O2 Flow Rate FiO2 10/01/16 06:18 97.8 93 15 137/71 94 Intake and Output 10/02/16 10/02/16 10/03/16 08:00 16:00 00:00 Intake Total 0 ml 1400 ml 240 ml Balance 0 ml 1400 ml 240 ml Assessment & Plan Problem List: (1) Dementia in other diseases classified elsewhere with behavioral disturbance ICD Code: F02.81 (2) Alzheimer's dementia with behavioral disturbance ICD Code: G30.8 Assessment & Plan Patient at this time continues to be confused require reorientation but has not had any behavioral dyscontrol overnight. Patient refusing vitals and medications but was encouraged to comply with recommendations. Continue to encourage patient to continue current treatment. Discharge planning in progress Justification for Cont. Inpt. Patient at risk for further decompensation if it lower level of care Discharge Planning In progress Constantin Mendoza MD Oct 03, 2016 09:54
[2016-10-03] MEDS: QUEtiapine FUMARATE 25 MG TAB PO SCH ×2 (10:07→17:02)
--- NOTE | 2016-10-03 14:26 | HHI.PR ---
Subjective Remarks Patient poorly communicative denies cp/sob Patient is refusing lab draws. Objective Vitals I/O 10/02/16 10/02/16 10/02/16 10/03/16 10/03/16 10/03/16 07:00 15:00 23:00 07:00 15:00 23:00 Intake Total 0 ml 1400 ml 240 ml 0 ml 480 ml Balance 0 ml 1400 ml 240 ml 0 ml 480 ml Intake Oral 0 ml 1400 ml 240 ml 0 ml 480 ml # Voids 0 0 1 Result Diagram: 09/29/16 2234 09/29/16 2234 Imaging Last Impressions Head CT 09/30/16 0000 Signed Impressions: Service Date/Time: Friday, September 30, 2016 02:23 - CONCLUSION: No acute findings. Significant hypodensity of the supratentorial white matter suggesting ischemic demyelination. Leodan Silverio MD Chest X-Ray 09/29/16 0000 Signed Impressions: Service Date/Time: Thursday, September 29, 2016 20:25 - CONCLUSION: No evidence of acute cardiopulmonary disease. Magdy Scales MD Objective Remarks refused examination. Medications and IVs Current Medications Medications (Trade) Dose Ordered Sig/Kp Route Start Time Stop Time Status Last Admin (Ativan) 0.5 mg Q12H PRN PO 09/23/16 13:15 Hold (Ativan Inj) 0.5 mg Q12H PRN IM 09/23/16 13:15 Hold (Tylenol) 650 mg Q4H PRN PO 09/24/16 10:15 (Milk Of Magnesia Liq) 30 ml DAILY PRN PO 09/24/16 10:15 (Mag-Al Plus Susp Liq) 30 ml Q6H PRN PO 09/24/16 10:15 (SEROquel) 25 mg BID@09,16 PO 09/29/16 16:00 10/02/16 16:00 (Nitrostat Sl) 0.4 mg Q5M PRN SL 09/29/16 20:30 (Vasotec Inj) 1.25 mg Q8H PRN IV PUSH 10/01/16 15:00 A/P Assessment and Plan 80-year-old female admitted for Dementia - psychiatry following Uncontrolled htn- patient denies any history but unreliable. no family at bedside. EKG no ischemic changes. Chest x-ray reviewed no infiltrates Heart healthy diet 09/28 Patient started on amlodipine but refused to take it. BP severely elevated and uncontrolled into the SBP 180's. 09/30 Hypotensive episode after being on clonidine patch. Clonidine patch removed and discontinued. Monitor vital signs for now. Will start on Vasotec PRN. 10/01 Bp much stable off clonidine patch. Continue to monitor BP. Hypotension - Likely medication induced. Clonidine patch discontinued. BP much improved after removal of patch. Continue to monitor BP. Abnormal head CT - Head CT showed no acute findings, however there is significant hypodensity of the supratentorial white matter suggesting ischemic demyelination. I will consult neurology for further recommendations. - 10/01 neurology recommendations pending. - appreciate neurology efforts - patient refused neurological evaluation. Discharge Planning As per primary Tyrell Briones MD Oct 03, 2016 14:26
[2016-10-04 05:30] VITALS: BP 158/69; PULSE 53; RESP 16; TEMP 97.6; O2SAT 95
[2016-10-04] MEDS: QUEtiapine FUMARATE 25 MG TAB PO SCH ×2 (08:26→16:24)
--- NOTE | 2016-10-04 16:21 | HHI.PR ---
Subjective Remarks Deferred entry - patient seen at 11:45 am Patient states " I am ok, I don't have anything." Objective Vitals Vital Signs Date Time Temp Pulse Resp B/P (MAP) Pulse Ox O2 Delivery O2 Flow Rate FiO2 10/04/16 05:30 97.6 53 16 158/69 (98) 95 I/O 10/03/16 10/03/16 10/03/16 10/04/16 10/04/16 10/04/16 06:59 14:59 22:59 06:59 14:59 22:59 Intake Total 0 ml 660 ml 1440 ml 240 ml 480 ml Balance 0 ml 660 ml 1440 ml 240 ml 480 ml Intake Oral 0 ml 660 ml 1440 ml 240 ml 480 ml # Voids 1 5 # Bowel Movements 0 2 Result Diagram: 09/29/16 2234 Objective Remarks refused examination. A/P Assessment and Plan 80-year-old female admitted for Dementia - psychiatry following Uncontrolled htn- patient denies any history but unreliable. no family at bedside. EKG no ischemic changes. Chest x-ray reviewed no infiltrates Heart healthy diet 09/28 Patient started on amlodipine but refused to take it. BP severely elevated and uncontrolled into the SBP 180's. 09/30 Hypotensive episode after being on clonidine patch. Clonidine patch removed and discontinued. Monitor vital signs for now. Will start on Vasotec PRN. 10/01 Bp much stable off clonidine patch. Continue to monitor BP. 10/04 BP elevated in the 150's systolic. Will start on Amlodipine 5 mg daily. Will not use clonidine patch due to recent severe hypotension. Hypotension - Likely medication induced. Clonidine patch discontinued. BP much improved after removal of patch. Continue to monitor BP. Abnormal head CT - Head CT showed no acute findings, however there is significant hypodensity of the supratentorial white matter suggesting ischemic demyelination. I will consult neurology for further recommendations. - 10/01 neurology recommendations pending. - appreciate neurology efforts - patient refused neurological evaluation. - Start the patient on low dose aspirin. Discharge Planning As per primary Tyrell Briones MD Oct 04, 2016 16:21
--- NOTE | 2016-10-04 18:22 | HHI.PYPN ---
Subjective Remarks Patient seen for follow-up, chart reviewed. After discussion with nursing staff , patient refusing medications today but allowed vital signs to be taken, difficulty with sleep last evening. Patient found watching television, calm and cooperative with interview. She reports having slept well, no problems with urination or bowel movements, denies any ADRs from medications. Patient encouraged to allow staff to take vitals and to continue medications as ordered which she agreed to. Currently denies any mood or psychotic symptoms at this time. Review of Systems Except as stated in HPI: all other systems reviewed are Neg Objective Alert: Yes [place]: Person Mood: Calm Affect: Other (slight decreased range and intensity) Memory Intact: Comment (impaired) Hallucinations: Other (denies) Delusions: Yes Delusion Type: Paranoid Suicidal: Ideation (denies) Homicidal: Ideation (denies) Insight/Judgment poor insight, poor judgment, fair impulse control Labs Date/Time Source Procedure Growth Status 09/29/16 22:34 Blood Peripheral Aerobic Blood Culture - Final NO GROWTH IN 5 DAYS Complete 09/29/16 22:34 Blood Peripheral Anaerobic Blood Culture - Final NO GROWTH IN 5 DAYS Complete Vitals/IOs Vital Signs Date Time Temp Pulse Resp B/P (MAP) Pulse Ox O2 Delivery O2 Flow Rate FiO2 10/04/16 05:30 97.6 53 16 158/69 (98) 95 Intake and Output 10/04/16 10/04/16 10/05/16 08:00 16:00 00:00 Intake Total 720 ml 480 ml Balance 720 ml 480 ml Assessment & Plan Problem List: (1) Dementia in other diseases classified elsewhere with behavioral disturbance ICD Codes: F02.81 - Dementia in other diseases classified elsewhere with behavioral disturbance Status: Acute (2) Alzheimer's dementia with behavioral disturbance ICD Codes: G30.8 - Other Alzheimer's disease; F02.81 - 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 Patient to continue current treatment. Discharge planning in progress. Justification for Cont. Inpt. At risk for further decompensation if at lower level of care. Discharge Planning In progress Constantin Mendoza MD Oct 04, 2016 18:21
[2016-10-05 06:16] VITALS: BP_SYST 199; BP_SYST 221; BP_DIAS 105; BP_DIAS 89; PULSE 99
[2016-10-05] MEDS ORDERED: cloNIDine HCL 0.1 MG TAB PO ONE (06:30)
[2016-10-05] MEDS: QUEtiapine FUMARATE 25 MG TAB PO SCH ×2 (08:39→16:00)
[2016-10-05 09:00] VITALS: BP 178/102
[2016-10-05] MEDS: ASPIRIN EC 81 MG TABEC PO SCH (10:45)
--- NOTE | 2016-10-05 12:37 | HHI.PYPN ---
Subjective Remarks Patient standing by the window in her room on [address]. The very angry irritable look on her face. RN Arin present throughout session. Patient essentially refusing to speak with me. Asking me "who are you" she continues confused demented angry irritable, she is also refusing her hypertensive medications. Will have the nurse call the medicine service to ask about alternative delivery routes for their medication such as a clonidine patch. Review of Systems Except as stated in HPI: all other systems reviewed are Neg Objective Alert: Yes [place]: Person Mood: Calm Affect: Other (slight decreased range and intensity) Memory Intact: Comment (impaired) Hallucinations: Other (denies) Delusions: Yes Delusion Type: Paranoid Suicidal: Ideation (denies) Homicidal: Ideation (denies) Insight/Judgment Very poor Labs Date/Time Source Procedure Growth Status 09/29/16 22:34 Blood Peripheral Aerobic Blood Culture - Final NO GROWTH IN 5 DAYS Complete 09/29/16 22:34 Blood Peripheral Anaerobic Blood Culture - Final NO GROWTH IN 5 DAYS Complete Vitals/IOs Vital Signs Date Time Temp Pulse Resp B/P (MAP) Pulse Ox O2 Delivery O2 Flow Rate FiO2 10/05/16 09:00 178/102 (127) 10/05/16 06:16 99 10/04/16 05:30 97.6 16 95 Intake and Output 10/05/16 10/05/16 10/05/16 07:59 15:59 23:59 Intake Total 120 ml 240 ml Balance 120 ml 240 ml Assessment & Plan Problem List: (1) Dementia in other diseases classified elsewhere with behavioral disturbance ICD Codes: F02.81 - 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 Nurse to ask medical service to recommend alternative treatment such a transdermal Justification for Cont. Inpt. At this time patient will decompensate place to the lower level of care Discharge Planning To be determined Magdy Blackwood MD Oct 05, 2016 12:37
[2016-10-05] MEDS ORDERED: cloNIDine HCL 0.1 MG/24 HR PATCH T-DERMAL SCH (12:45)
[2016-10-05] MEDS ORDERED: LORazepam 2 MG/ML VIAL ONE ×2 (15:14→16:14)
[2016-10-05 15:25] VITALS: BP 228/119
[2016-10-05] MEDS ORDERED: hydrALAZINE HCL 20 MG/ML VIAL IV PUSH PRN (16:15)
[2016-10-05] MEDS ORDERED: diphenhydrAMINE HCL 50 MG/ML VIAL ONE (16:15)
[2016-10-05] MEDS ORDERED: HALOPERIDOL LACTATE 5 MG/ML AMP IM ONE (16:45)
[2016-10-05] MEDS ORDERED: diphenhydrAMINE HCL 50 MG/ML VIAL IM ONE (16:45)
[2016-10-05] MEDS ORDERED: LORazepam 2 MG/ML VIAL IM ONE (16:45)
[2016-10-05] MEDS ORDERED: diphenhydrAMINE HCL 50 MG/ML VIAL IM STA (16:51)
[2016-10-05] MEDS ORDERED: LORazepam 2 MG/ML VIAL IM STA (16:51)
[2016-10-05] MEDS ORDERED: HALOPERIDOL LACTATE 5 MG/ML AMP IM STA (16:51)
[2016-10-05 18:00] VITALS: BP 152/71; PULSE 59; RESP 16; TEMP 97.4; O2SAT 96
--- NOTE | 2016-10-05 19:35 | HHI.PR ---
Subjective Remarks Deferred entry - patient seen at 12:30 pm Patient denies cp/sob discussed overnight events w RN, patient refusing to take her medications, getting aggressive and agitated BP noted to be very elevated with a SBP in the 220's Objective Vitals Vital Signs Date Time Temp Pulse Resp B/P (MAP) Pulse Ox O2 Delivery O2 Flow Rate FiO2 10/05/16 18:00 97.4 59 16 152/71 (98) 96 10/05/16 15:25 228/119 (155) 10/05/16 09:00 178/102 (127) 10/05/16 06:16 99 221/89 (133) 199/105 (136) I/O 10/04/16 10/04/16 10/04/16 10/05/16 10/05/16 10/05/16 07:00 15:00 23:00 07:00 15:00 23:00 Intake Total 240 ml 1440 ml 120 ml 480 ml 120 ml Balance 240 ml 1440 ml 120 ml 480 ml 120 ml Intake Oral 240 ml 1440 ml 120 ml 480 ml 120 ml # Voids 2 3 5 # Bowel Movements 2 1 Result Diagram: 09/29/164 Imaging Last Impressions Head CT 09/30/16 0000 Signed Impressions: Service Date/Time: Friday, September 30, 2016 02:23 - CONCLUSION: No acute findings. Significant hypodensity of the supratentorial white matter suggesting ischemic demyelination. Leodan Silverio MD Chest X-Ray 09/29/16 0000 Signed Impressions: Service Date/Time: Thursday, September 29, 2016 20:25 - CONCLUSION: No evidence of acute cardiopulmonary disease. Magdy Scales MD Objective Remarks refused examination. Medications and IVs Current Medications Medications (Trade) Dose Ordered Sig/Kp Route Start Time Stop Time Status Last Admin (Ativan) 0.5 mg Q12H PRN PO 09/23/16 13:15 Future Hold (Ativan Inj) 0.5 mg Q12H PRN IM 09/23/16 13:15 Future Hold 10/05/16 15:19 (Tylenol) 650 mg Q4H PRN PO 09/24/16 10:15 (Milk Of Magnesia Liq) 30 ml DAILY PRN PO 09/24/16 10:15 (Mag-Al Plus Susp Liq) 30 ml Q6H PRN PO 09/24/16 10:15 (SEROquel) 25 mg BID@09,16 PO 09/29/16 16:00 10/05/16 08:39 (Nitrostat Sl) 0.4 mg Q5M PRN SL 09/29/16 20:30 (Vasotec Inj) 1.25 mg Q8H PRN IV PUSH 10/01/16 15:00 (Norvasc) 10 mg DAILY PO 10/05/16 10:45 (Ecotrin Ec) 81 mg DAILY PO 10/05/16 10:45 (Catapres-Tts 0.1mg Patch.7d) 1 patch Q7D T-DERMAL 10/05/16 12:45 10/05/16 15:01 (Apresoline Inj) 10 mg Q30M PRN IV PUSH 10/05/16 16:15 A/P Problem List: (1) Uncontrolled hypertension ICD Code: I10 - Essential (primary) hypertension (2) Dementia in other diseases classified elsewhere with behavioral disturbance ICD Code: F02.81 - Dementia in other diseases classified elsewhere with behavioral disturbance Status: Acute (3) Noncompliance with medication regimen ICD Code: Z91.14 - Patient's other noncompliance with medication regimen Status: Acute Assessment and Plan 80-year-old female admitted for Dementia - psychiatry following Uncontrolled htn- patient denies any history but unreliable. no family at bedside. EKG no ischemic changes. Chest x-ray reviewed no infiltrates Heart healthy diet 09/28 Patient started on amlodipine but refused to take it. BP severely elevated and uncontrolled into the SBP 180's. 09/30 Hypotensive episode after being on clonidine patch. Clonidine patch removed and discontinued. Monitor vital signs for now. Will start on Vasotec PRN. 10/01 Bp much stable off clonidine patch. Continue to monitor BP. 10/04 BP elevated in the 150's systolic. Will start on Amlodipine 5 mg daily. Will not use clonidine patch due to recent severe hypotension. 10/05 Patient is refusing oral bp medications. I will resume Clonidine patch with holding parameters. Hypotension - Likely medication induced. Clonidine patch discontinued. BP much improved after removal of patch. Continue to monitor BP. Abnormal head CT - Head CT showed no acute findings, however there is significant hypodensity of the supratentorial white matter suggesting ischemic demyelination. I will consult neurology for further recommendations. - 10/01 neurology recommendations pending. - appreciate neurology efforts - patient refused neurological evaluation. - Start the patient on low dose aspirin. Discharge Planning Not cleared for DC medically Tyrell Briones MD Oct 05, 2016 19:35
[2016-10-06 06:34] VITALS: BP 143/68; PULSE 107; RESP 18; TEMP 97.1; O2SAT 99
--- NOTE | 2016-10-06 08:41 | HHI.PYPN ---
Subjective Remarks Patient seen in her room with nurse Samanta and counselor Fior, chart review, patient showing mixed compliance with medication. Though her blood pressure is more acceptable today it appears she has had a clonidine patch applied. Patient more subdued today sitting in bed responses are slow whispered continues diffusely confused disorganized. Says she wants to go home. Discussed this with counselor placement remains quite problematic. For now continue treatment, for now continue medical monitoring by the medicine service Review of Systems Except as stated in HPI: all other systems reviewed are Neg Objective Alert: Yes [place]: Person Mood: Calm Affect: Other (slight decreased range and intensity) Memory Intact: Comment (impaired) Hallucinations: Other (denies) Delusions: Yes Delusion Type: Paranoid Suicidal: Ideation (denies) Homicidal: Ideation (denies) Insight/Judgment A very poor Labs Date/Time Source Procedure Growth Status 09/29/16 22:34 Blood Peripheral Aerobic Blood Culture - Final NO GROWTH IN 5 DAYS Complete 09/29/16 22:34 Blood Peripheral Anaerobic Blood Culture - Final NO GROWTH IN 5 DAYS Complete Vitals/IOs Vital Signs Date Time Temp Pulse Resp B/P (MAP) Pulse Ox O2 Delivery O2 Flow Rate FiO2 10/06/16 06:34 97.1 107 18 143/68 (93) 99 Intake and Output 10/06/16 10/06/16 10/06/16 07:59 15:59 23:59 Intake Total 0 ml Balance 0 ml Assessment & Plan Problem List: (1) Dementia in other diseases classified elsewhere with behavioral disturbance ICD Codes: F02.81 - Dementia in other diseases classified elsewhere with behavioral disturbance Status: Acute (2) Alzheimer's dementia with behavioral disturbance ICD Codes: G30.8 - Other Alzheimer's disease; F02.81 - Dementia in other diseases classified elsewhere with behavioral disturbance Status: Acute Assessment & Plan Estimated LOS: days patient continues confused demented at times somewhat feisty but this a.m. she is somewhat subdued. Mixed Compliant medications Justification for Cont. Inpt. At this time patient will decompensate if placed in a lower level of care Discharge Planning To be determined Magdy Blackwood MD Oct 06, 2016 08:41
[2016-10-06] MEDS: ASPIRIN EC 81 MG TABEC PO SCH (09:00)
[2016-10-06] MEDS: QUEtiapine FUMARATE 25 MG TAB PO SCH ×2 (09:39→16:00)
--- NOTE | 2016-10-06 15:32 | HHI.PR ---
Subjective Remarks denies cp/sob no complaints Objective Vitals Vital Signs Date Time Temp Pulse Resp B/P (MAP) Pulse Ox O2 Delivery O2 Flow Rate FiO2 10/06/16 06:34 97.1 107 18 143/68 (93) 99 10/05/16 18:00 97.4 59 16 152/71 (98) 96 I/O 10/05/16 10/05/16 10/05/16 10/06/16 10/06/16 10/06/16 06:59 14:59 22:59 06:59 14:59 22:59 Intake Total 120 ml 480 ml 120 ml 0 ml 480 ml Balance 120 ml 480 ml 120 ml 0 ml 480 ml Intake Oral 120 ml 480 ml 120 ml 0 ml 240 ml Oral Supplement 240 ml # Voids 3 5 2 # Bowel Movements 1 Result Diagram: 09/29/16 2234 Imaging Last Impressions Head CT 09/30/16 0000 Signed Impressions: Service Date/Time: Friday, September 30, 2016 02:23 - CONCLUSION: No acute findings. Significant hypodensity of the supratentorial white matter suggesting ischemic demyelination. Leodan Silverio MD Chest X-Ray 09/29/16 0000 Signed Impressions: Service Date/Time: Thursday, September 29, 2016 20:25 - CONCLUSION: No evidence of acute cardiopulmonary disease. Magdy Scales MD Objective Remarks refused examination. Medications and IVs Current Medications Medications (Trade) Dose Ordered Sig/Kp Route Start Time Stop Time Status Last Admin (Ativan) 0.5 mg Q12H PRN PO 09/23/16 13:15 Future Hold (Ativan Inj) 0.5 mg Q12H PRN IM 09/23/16 13:15 Future Hold 10/05/16 15:19 (Tylenol) 650 mg Q4H PRN PO 09/24/16 10:15 (Milk Of Magnesia Liq) 30 ml DAILY PRN PO 09/24/16 10:15 (Mag-Al Plus Susp Liq) 30 ml Q6H PRN PO 09/24/16 10:15 (SEROquel) 25 mg BID@09,16 PO 09/29/16 16:00 10/06/16 09:39 (Nitrostat Sl) 0.4 mg Q5M PRN SL 09/29/16 20:30 (Vasotec Inj) 1.25 mg Q8H PRN IV PUSH 10/01/16 15:00 (Norvasc) 10 mg DAILY PO 10/05/16 10:45 10/06/16 09:39 (Ecotrin Ec) 81 mg DAILY PO 10/05/16 10:45 (Catapres-Tts 0.1mg Patch.7d) 1 patch Q7D T-DERMAL 10/05/16 12:45 10/05/16 15:01 (Apresoline Inj) 10 mg Q30M PRN IV PUSH 10/05/16 16:15 A/P Problem List: (1) Uncontrolled hypertension ICD Code: I10 - Essential (primary) hypertension (2) Dementia in other diseases classified elsewhere with behavioral disturbance ICD Code: F02.81 - Dementia in other diseases classified elsewhere with behavioral disturbance Status: Acute (3) Noncompliance with medication regimen ICD Code: Z91.14 - Patient's other noncompliance with medication regimen Status: Acute Assessment and Plan 80-year-old female admitted for Dementia - psychiatry following Uncontrolled htn- patient denies any history but unreliable. no family at bedside. EKG no ischemic changes. Chest x-ray reviewed no infiltrates Heart healthy diet 09/28 Patient started on amlodipine but refused to take it. BP severely elevated and uncontrolled into the SBP 180's. 09/30 Hypotensive episode after being on clonidine patch. Clonidine patch removed and discontinued. Monitor vital signs for now. Will start on Vasotec PRN. 10/01 Bp much stable off clonidine patch. Continue to monitor BP. 10/04 BP elevated in the 150's systolic. Will start on Amlodipine 5 mg daily. Will not use clonidine patch due to recent severe hypotension. 10/05 Patient is refusing oral bp medications. I will resume Clonidine patch with holding parameters. 10/06 BP with better control. Continue clonidine patch and amlodipine. Watch for hypotension. Hypotension - Likely medication induced. Clonidine patch discontinued. BP much improved after removal of patch. Continue to monitor BP. - Resolved Abnormal head CT - Head CT showed no acute findings, however there is significant hypodensity of the supratentorial white matter suggesting ischemic demyelination. I will consult neurology for further recommendations. - 10/01 neurology recommendations pending. - appreciate neurology efforts - patient refused neurological evaluation. - Start the patient on low dose aspirin. Discharge Planning As per primary Tyrell Briones MD Oct 06, 2016 15:32
[2016-10-06 18:00] VITALS: BP_SYST 159; BP_SYST 194; BP_DIAS 82; BP_DIAS 90; PULSE 92; RESP 17; TEMP 97.3; O2SAT 100
[2016-10-07 06:07] VITALS: BP 152/72; PULSE 72; RESP 18; O2SAT 97
--- NOTE | 2016-10-07 08:31 | HHI.PYPN ---
Subjective Remarks Patient seen in her room with nurse Andreina, chart reviewed. Patient continues somewhat irritable with me today not responding verbally to my questions, though making eye contact and nodding yes or no. She now has a clonidine patch seems her blood pressure is starting to stabilize. Discussed this also with counselor to continue to work on placement which is quite problematic Review of Systems Except as stated in HPI: all other systems reviewed are Neg Objective Alert: Yes [place]: Person Mood: Calm Affect: Other (slight decreased range and intensity) Memory Intact: Comment (impaired) Hallucinations: Other (denies) Delusions: Yes Delusion Type: Paranoid Suicidal: Ideation (denies) Homicidal: Ideation (denies) Insight/Judgment Very Poor Labs Date/Time Source Procedure Growth Status 09/29/16 22:34 Blood Peripheral Aerobic Blood Culture - Final NO GROWTH IN 5 DAYS Complete 09/29/16 22:34 Blood Peripheral Anaerobic Blood Culture - Final NO GROWTH IN 5 DAYS Complete Vitals/IOs Vital Signs Date Time Temp Pulse Resp B/P (MAP) Pulse Ox O2 Delivery O2 Flow Rate FiO2 10/07/16 06:07 72 18 152/72 (98) 97 10/06/16 18:00 97.3 Intake and Output 10/07/16 10/07/16 10/08/16 08:00 16:00 00:00 Intake Total 0 ml Balance 0 ml Assessment & Plan Problem List: (1) Dementia in other diseases classified elsewhere with behavioral disturbance ICD Codes: F02.81 - Dementia in other diseases classified elsewhere with behavioral disturbance Status: Acute (2) Alzheimer's dementia with behavioral disturbance ICD Codes: G30.8 - Other Alzheimer's disease; F02.81 - Dementia in other diseases classified elsewhere with behavioral disturbance Status: Acute Assessment & Plan Estimated LOS: days patient continues confused and demented, it appears her blood pressure at least is in today is starting to stabilize. For now continue treatment Justification for Cont. Inpt. At this time patient would decompensate if not placed in an appropriate level of care Discharge Planning To be determined Magdy Blackwood MD Oct 07, 2016 08:31
[2016-10-07] MEDS: QUEtiapine FUMARATE 25 MG TAB PO SCH ×3 (08:48→16:00)
[2016-10-07] MEDS: ASPIRIN EC 81 MG TABEC PO SCH ×2 (08:48→08:54)
--- NOTE | 2016-10-07 10:07 | HHI.PR ---
Subjective Remarks The patient was sitting in a chair, looking out the window. She looked comfortable and had no acute complaints. She said she had no problems. She wanted to go home soon. Objective Vitals Vital Signs Date Time Temp Pulse Resp B/P (MAP) Pulse Ox O2 Delivery O2 Flow Rate FiO2 10/07/16 06:07 72 18 152/72 (98) 97 10/06/16 18:00 97.3 92 17 194/90 (124) 100 159/82 (107) I/O 10/06/16 10/06/16 10/06/16 10/07/16 10/07/16 10/07/16 07:00 15:00 23:00 07:00 15:00 23:00 Intake Total 0 ml 480 ml 600 ml 0 ml 480 ml Balance 0 ml 480 ml 600 ml 0 ml 480 ml Intake Oral 0 ml 240 ml 600 ml 0 ml 480 ml Oral Supplement 240 ml # Voids 2 2 1 Result Diagram: 09/29/16 2234 Imaging Last Impressions Head CT 09/30/16 0000 Signed Impressions: Service Date/Time: Friday, September 30, 2016 02:23 - CONCLUSION: No acute findings. Significant hypodensity of the supratentorial white matter suggesting ischemic demyelination. Leodan Silverio MD Chest X-Ray 09/29/16 0000 Signed Impressions: Service Date/Time: Thursday, September 29, 2016 20:25 - CONCLUSION: No evidence of acute cardiopulmonary disease. Magdy Scales MD Objective Remarks GENERAL: Resting comfortably. SKIN: No rashes, ecchymoses or lesions. Cool and dry. HEAD: Atraumatic. Normocephalic. EYES: Pupils equal round and reactive. Extraocular motions intact. No scleral icterus. No injection or drainage. ENT: Nose without bleeding, Throat without erythema, tonsillar hypertrophy or exudate. Uvula midline. Airway patent. NECK: Trachea midline. No JVD or lymphadenopathy. Supple, nontender, no meningeal signs. CARDIOVASCULAR: Regular rate and rhythm without murmurs, gallops, or rubs. RESPIRATORY: Clear to auscultation. Breath sounds equal bilaterally. No wheezes , rales, or rhonchi. GASTROINTESTINAL: Abdomen soft, non-tender, nondistended. No hepato-splenomegaly , or palpable masses. No guarding. MUSCULOSKELETAL: Extremities without clubbing, cyanosis, or edema. No joint tenderness, effusion, or edema noted. NEUROLOGICAL: Awake and alert. Cranial nerves II through XII intact. Motor and sensory grossly within normal limits. Five out of 5 muscle strength in all muscle groups. Normal speech. PSYCH: Mood and affect appropriate. Medications and IVs Current Medications Medications (Trade) Dose Ordered Sig/Kp Route Start Time Stop Time Status Last Admin (Ativan) 0.5 mg Q12H PRN PO 09/23/16 13:15 Future Hold (Ativan Inj) 0.5 mg Q12H PRN IM 09/23/16 13:15 Future Hold 10/05/16 15:19 (Tylenol) 650 mg Q4H PRN PO 09/24/16 10:15 (Milk Of Magnesia Liq) 30 ml DAILY PRN PO 09/24/16 10:15 (Mag-Al Plus Susp Liq) 30 ml Q6H PRN PO 09/24/16 10:15 (SEROquel) 25 mg BID@09,16 PO 09/29/16 16:00 10/06/16 16:00 (Nitrostat Sl) 0.4 mg Q5M PRN SL 09/29/16 20:30 (Vasotec Inj) 1.25 mg Q8H PRN IV PUSH 10/01/16 15:00 (Norvasc) 10 mg DAILY PO 10/05/16 10:45 10/06/16 09:39 (Ecotrin Ec) 81 mg DAILY PO 10/05/16 10:45 (Catapres-Tts 0.1mg Patch.7d) 1 patch Q7D T-DERMAL 10/05/16 12:45 10/05/16 15:01 (Apresoline Inj) 10 mg Q30M PRN IV PUSH 10/05/16 16:15 A/P Problem List: (1) Uncontrolled hypertension ICD Code: I10 - Essential (primary) hypertension (2) Dementia in other diseases classified elsewhere with behavioral disturbance ICD Code: F02.81 - Dementia in other diseases classified elsewhere with behavioral disturbance Status: Acute (3) Noncompliance with medication regimen ICD Code: Z91.14 - Patient's other noncompliance with medication regimen Status: Acute Assessment and Plan 80-year-old female admitted for Dementia - psychiatry following Uncontrolled htn- patient denies any history but unreliable. no family at bedside. EKG no ischemic changes. Chest x-ray reviewed no infiltrates - Heart healthy diet. - Continue clonidine patch and increase as needed. The patient has been refusing amlodipine. Hypotension Likely medication induced. BP much improved after removal of clonidine patch. - Continue to monitor BP while on clonidine patch. Abnormal head CT Head CT showed no acute findings, however there is significant hypodensity of the supratentorial white matter suggesting ischemic demyelination. Appreciate neurology efforts - patient refused neurological evaluation. - Started the patient on low dose aspirin. Ric Byrne DO Oct 07, 2016 10:07
[2016-10-07 18:45] VITALS: BP 178/84; PULSE 57
[2016-10-08] MEDS: QUEtiapine FUMARATE 25 MG TAB PO SCH ×2 (09:00→16:00)
[2016-10-08] MEDS: ASPIRIN EC 81 MG TABEC PO SCH (09:00)
--- NOTE | 2016-10-08 09:20 | HHI.PR ---
Subjective Remarks The patient asked the cleaning lady if she could leave with her and go downstairs. She had no acute complaints. Objective Vitals Vital Signs Date Time Temp Pulse Resp B/P (MAP) Pulse Ox O2 Delivery O2 Flow Rate FiO2 10/07/16 18:45 57 178/84 (115) I/O 10/07/16 10/07/16 10/07/16 10/08/16 10/08/16 10/08/16 06:59 14:59 22:59 06:59 14:59 22:59 Intake Total 0 ml 960 ml 600 ml 0 ml Balance 0 ml 960 ml 600 ml 0 ml Intake Oral 0 ml 960 ml 600 ml 0 ml # Voids 1 3 2 Imaging Last Impressions Head CT 09/30/16 0000 Signed Impressions: Service Date/Time: Friday, September 30, 2016 02:23 - CONCLUSION: No acute findings. Significant hypodensity of the supratentorial white matter suggesting ischemic demyelination. Leodan Silverio MD Chest X-Ray 09/29/16 0000 Signed Impressions: Service Date/Time: Thursday, September 29, 2016 20:25 - CONCLUSION: No evidence of acute cardiopulmonary disease. Magdy Scales MD Objective Remarks GENERAL: Resting comfortably. SKIN: No rashes, ecchymoses or lesions. Cool and dry. HEAD: Atraumatic. Normocephalic. EYES: Pupils equal round and reactive. Extraocular motions intact. No scleral icterus. No injection or drainage. ENT: Nose without bleeding, Throat without erythema, tonsillar hypertrophy or exudate. Uvula midline. Airway patent. NECK: Trachea midline. No JVD or lymphadenopathy. Supple, nontender, no meningeal signs. CARDIOVASCULAR: Regular rate and rhythm without murmurs, gallops, or rubs. RESPIRATORY: Clear to auscultation. Breath sounds equal bilaterally. No wheezes , rales, or rhonchi. GASTROINTESTINAL: Abdomen soft, non-tender, nondistended. No hepato-splenomegaly , or palpable masses. No guarding. MUSCULOSKELETAL: Extremities without clubbing, cyanosis, or edema. No joint tenderness, effusion, or edema noted. NEUROLOGICAL: Awake and alert. Cranial nerves II through XII intact. Motor and sensory grossly within normal limits. Five out of 5 muscle strength in all muscle groups. Normal speech. PSYCH: Mood and affect appropriate. Medications and IVs Current Medications Medications (Trade) Dose Ordered Sig/Kp Route Start Time Stop Time Status Last Admin (Ativan) 0.5 mg Q12H PRN PO 09/23/16 13:15 Future Hold (Ativan Inj) 0.5 mg Q12H PRN IM 09/23/16 13:15 Future Hold 10/05/16 15:19 (Tylenol) 650 mg Q4H PRN PO 09/24/16 10:15 (Milk Of Magnesia Liq) 30 ml DAILY PRN PO 09/24/16 10:15 (Mag-Al Plus Susp Liq) 30 ml Q6H PRN PO 09/24/16 10:15 (SEROquel) 25 mg BID@,16 PO 09/29/16 16:00 10/06/16 16:00 (Nitrostat Sl) 0.4 mg Q5M PRN SL 09/29/16 20:30 (Vasotec Inj) 1.25 mg Q8H PRN IV PUSH 10/01/16 15:00 (Norvasc) 10 mg DAILY PO 10/05/16 10:45 10/06/16 09:39 (Ecotrin Ec) 81 mg DAILY PO 10/05/16 10:45 (Catapres-Tts 0.1mg Patch.7d) 1 patch Q7D T-DERMAL 10/05/16 12:45 10/05/16 15:01 (Apresoline Inj) 10 mg Q30M PRN IV PUSH 10/05/16 16:15 A/P Problem List: (1) Uncontrolled hypertension ICD Code: I10 - Essential (primary) hypertension (2) Dementia in other diseases classified elsewhere with behavioral disturbance ICD Code: F02.81 - Dementia in other diseases classified elsewhere with behavioral disturbance Status: Acute (3) Noncompliance with medication regimen ICD Code: Z91.14 - Patient's other noncompliance with medication regimen Status: Acute Assessment and Plan Dementia - Management per psychiatry. Uncontrolled HTN Patient denies any history, but unreliable. EKG no ischemic changes. - Heart healthy diet. - Continue clonidine patch and increase as needed. The patient has been refusing amlodipine. Hypotension Likely medication induced. Now has been persistently hypertensive. - Continue to monitor BP while on clonidine patch. Abnormal head CT Head CT showed no acute findings, however there is significant hypodensity of the supratentorial white matter suggesting ischemic demyelination. Appreciate neurology efforts - patient refused neurological evaluation. - Started the patient on low dose aspirin, but the patient is refusing. PPx: Ambulation Discharge Planning Per psych Ric Byrne DO Oct 08, 2016 09:19
--- NOTE | 2016-10-08 14:50 | HHI.PYPN ---
Subjective Remarks Patient seen in her room with floor staff. Chart reviewed. Patient is being quite noncompliant with the medications.. Her blood pressure still is somewhat labile. Though behaviors are calm. She is calm with me today pleasantly confused showing very little in the way of paranoia or vigilance. For now continue treatment no change Review of Systems Except as stated in HPI: all other systems reviewed are Neg Objective Alert: Yes [place]: Person Mood: Calm Affect: Other (slight decreased range and intensity) Memory Intact: Comment (impaired) Hallucinations: Other (denies) Delusions: Yes Delusion Type: Paranoid Suicidal: Ideation (denies) Homicidal: Ideation (denies) Insight/Judgment Very poor Labs Date/Time Source Procedure Growth Status 09/29/16 22:34 Blood Peripheral Aerobic Blood Culture - Final NO GROWTH IN 5 DAYS Complete 09/29/16 22:34 Blood Peripheral Anaerobic Blood Culture - Final NO GROWTH IN 5 DAYS Complete Vitals/IOs Vital Signs Date Time Temp Pulse Resp B/P (MAP) Pulse Ox O2 Delivery O2 Flow Rate FiO2 10/07/16 18:45 57 178/84 (115) 10/07/16 06:07 18 97 10/06/16 18:00 97.3 Intake and Output 10/08/16 10/08/16 10/09/16 08:00 16:00 00:00 Intake Total 480 ml Balance 480 ml Assessment & Plan Problem List: (1) Dementia in other diseases classified elsewhere with behavioral disturbance ICD Codes: F02.81 - Dementia in other diseases classified elsewhere with behavioral disturbance Status: Acute (2) Alzheimer's dementia with behavioral disturbance ICD Codes: G30.8 - Other Alzheimer's disease; F02.81 - Dementia in other diseases classified elsewhere with behavioral disturbance Status: Acute Assessment & Plan Estimated LOS: days patient continues to take confused though no behavior problems at this time. She is showing very poor compliance with medication Justification for Cont. Inpt. At this time patient decompensate if placed on the lower level of care Discharge Planning To be determined Magdy Blackwood MD Oct 08, 2016 14:50
[2016-10-08 18:00] VITALS: BP 232/106; PULSE 71; RESP 16; TEMP 97.5; O2SAT 98
[2016-10-08] MEDS ORDERED: ENALAPRILAT 2.5 MG/2 ML VIAL IV PUSH PRN (19:15)
[2016-10-08] MEDS: LISINOPRIL 20 MG TAB PO SCH (19:41)
[2016-10-08 20:20] VITALS: BP 199/100
[2016-10-08] MEDS ORDERED: cloNIDine HCL 0.2 MG/24 HR PATCH T-DERMAL SCH (21:00)
[2016-10-08 21:07] VITALS: BP 182/90; PULSE 80
[2016-10-08] MEDS ORDERED: cloNIDine HCL 0.1 MG TAB PO PRN (21:30)
[2016-10-08 22:38] VITALS: BP 198/100; PULSE 85
[2016-10-08 23:26] VITALS: BP 142/78
[2016-10-09 06:20] VITALS: BP 161/70; PULSE 17; RESP 16; TEMP 97.6; O2SAT 100
[2016-10-09] MEDS: ASPIRIN EC 81 MG TABEC PO SCH (09:15)
[2016-10-09] MEDS: QUEtiapine FUMARATE 25 MG TAB PO SCH ×2 (09:15→16:00)
[2016-10-09] MEDS: LISINOPRIL 20 MG TAB PO SCH (09:15)
--- NOTE | 2016-10-09 10:03 | HHI.PR ---
Subjective Remarks The patient was working outside the window. She appeared to be in a good mood. Discussed with nursing. The patient was agreeable to taking her medications this morning. Objective Vitals Vital Signs Date Time Temp Pulse Resp B/P (MAP) Pulse Ox O2 Delivery O2 Flow Rate FiO2 10/09/16 06:20 97.6 17 16 161/70 (100) 100 10/08/16 23:26 142/78 (99) Automatic Cuff 10/08/16 22:38 85 198/100 (132) 10/08/16 21:07 80 182/90 (120) 10/08/16 20:20 199/100 (133) 10/08/16 18:00 97.5 71 16 232/106 (148) 98 I/O 10/08/16 10/08/16 10/08/16 10/09/16 10/09/16 10/09/16 06:59 14:59 22:59 06:59 14:59 22:59 Intake Total 0 ml 1920 ml 2040 ml 120 ml Balance 0 ml 1920 ml 2040 ml 120 ml Intake Oral 0 ml 1920 ml 2040 ml 120 ml # Voids 2 2 4 1 Imaging Last Impressions Head CT 09/30/16 0000 Signed Impressions: Service Date/Time: Friday, September 30, 2016 02:23 - CONCLUSION: No acute findings. Significant hypodensity of the supratentorial white matter suggesting ischemic demyelination. Leodan Silverio MD Chest X-Ray 09/29/16 0000 Signed Impressions: Service Date/Time: Thursday, September 29, 2016 20:25 - CONCLUSION: No evidence of acute cardiopulmonary disease. Magdy Scales MD Objective Remarks GENERAL: Resting comfortably. SKIN: No rashes, ecchymoses or lesions. Cool and dry. HEAD: Atraumatic. Normocephalic. EYES: Pupils equal round and reactive. Extraocular motions intact. No scleral icterus. No injection or drainage. ENT: Nose without bleeding, Throat without erythema, tonsillar hypertrophy or exudate. Uvula midline. Airway patent. NECK: Trachea midline. No JVD or lymphadenopathy. Supple, nontender, no meningeal signs. CARDIOVASCULAR: Regular rate and rhythm without murmurs, gallops, or rubs. RESPIRATORY: Clear to auscultation. Breath sounds equal bilaterally. No wheezes , rales, or rhonchi. GASTROINTESTINAL: Abdomen soft, non-tender, nondistended. No hepato-splenomegaly , or palpable masses. No guarding. MUSCULOSKELETAL: Extremities without clubbing, cyanosis, or edema. No joint tenderness, effusion, or edema noted. NEUROLOGICAL: Awake and alert. Cranial nerves II through XII intact. Motor and sensory grossly within normal limits. Five out of 5 muscle strength in all muscle groups. Normal speech. PSYCH: Mood and affect appropriate. Medications and IVs Current Medications Medications (Trade) Dose Ordered Sig/Pk Route Start Time Stop Time Status Last Admin (Ativan) 0.5 mg Q12H PRN PO 09/23/16 13:15 Future Hold (Ativan Inj) 0.5 mg Q12H PRN IM 09/23/16 13:15 Future Hold 10/05/16 15:19 (Tylenol) 650 mg Q4H PRN PO 09/24/16 10:15 (Milk Of Magnesia Liq) 30 ml DAILY PRN PO 09/24/16 10:15 (Mag-Al Plus Susp Liq) 30 ml Q6H PRN PO 09/24/16 10:15 (SEROquel) 25 mg BID@09,16 PO 09/29/16 16:00 10/09/16 09:15 (Nitrostat Sl) 0.4 mg Q5M PRN SL 09/29/16 20:30 (Ecotrin Ec) 81 mg DAILY PO 10/05/16 10:45 10/09/16 09:15 (Apresoline Inj) 10 mg Q30M PRN IV PUSH 10/05/16 16:15 (Prinivil) 20 mg DAILY PO 10/08/16 19:15 10/09/16 09:15 (Vasotec Inj) 2.5 mg Q6H PRN IV PUSH 10/08/16 19:15 10/08/16 19:47 Miscellaneous Information 1 Q7D T-DERMAL 10/15/16 21:00 (Catapres) 0.1 mg Q6H PRN PO 10/08/16 21:30 10/08/16 22:40 A/P Problem List: (1) Uncontrolled hypertension ICD Code: I10 - Essential (primary) hypertension (2) Dementia in other diseases classified elsewhere with behavioral disturbance ICD Code: F02.81 - Dementia in other diseases classified elsewhere with behavioral disturbance Status: Acute (3) Noncompliance with medication regimen ICD Code: Z91.14 - Patient's other noncompliance with medication regimen Status: Acute Assessment and Plan Dementia - Management per psychiatry. Uncontrolled HTN Patient denies any history, but unreliable. EKG no ischemic changes. Does not take medications as directed. - Heart healthy diet. - Continue clonidine patch and increase to 0.2 mg. - lisinopril 20 mg daily added. Adjust as needed. Hypotension Likely medication induced. Now has been persistently hypertensive. - Continue to monitor BP while on clonidine patch. Abnormal head CT Head CT showed no acute findings, however there is significant hypodensity of the supratentorial white matter suggesting ischemic demyelination. Appreciate neurology efforts - patient refused neurological evaluation. - Started the patient on low dose aspirin, but the patient is refusing. PPx: Ambulation Discharge Planning Per psych Ric Byrne DO Oct 09, 2016 10:03
--- NOTE | 2016-10-09 11:25 | HHI.PYPN ---
Subjective Remarks Patient seen in her room the floor staff, chart review, patient continues somewhat calmer and more appropriate, though also continues quite confused disoriented. Nursing is having less difficulty with her compliance with medications. It appears to may be a place available for this patient on Thursday 10/12 for now continue treatment Review of Systems Except as stated in HPI: all other systems reviewed are Neg Objective Alert: Yes [place]: Person Mood: Calm Affect: Other (slight decreased range and intensity) Memory Intact: Comment (impaired) Hallucinations: Other (denies) Delusions: Yes Delusion Type: Paranoid Suicidal: Ideation (denies) Homicidal: Ideation (denies) Insight/Judgment Very poor Labs Date/Time Source Procedure Growth Status 09/29/16 22:34 Blood Peripheral Aerobic Blood Culture - Final NO GROWTH IN 5 DAYS Complete 09/29/16 22:34 Blood Peripheral Anaerobic Blood Culture - Final NO GROWTH IN 5 DAYS Complete Vitals/IOs Vital Signs Date Time Temp Pulse Resp B/P (MAP) Pulse Ox O2 Delivery O2 Flow Rate FiO2 10/09/16 06:20 97.6 17 16 161/70 (100) 100 Intake and Output 10/09/16 10/09/16 10/10/16 08:00 16:00 00:00 Intake Total 120 ml Balance 120 ml Assessment & Plan Problem List: (1) Dementia in other diseases classified elsewhere with behavioral disturbance ICD Codes: F02.81 - Dementia in other diseases classified elsewhere with behavioral disturbance Status: Acute (2) Alzheimer's dementia with behavioral disturbance ICD Codes: G30.8 - Other Alzheimer's disease; F02.81 - Dementia in other diseases classified elsewhere with behavioral disturbance Status: Acute Assessment & Plan Estimated LOS: days patient continues confused demented though somewhat less of behavioral problem, she is calmer today more cooperative though the medication. For now continue treatment Justification for Cont. Inpt. At this time patient will decompensate if not Plaisted an appropriate level of care Discharge Planning To be determined Magdy Blackwood MD Oct 09, 2016 11:25
[2016-10-10] MEDS: QUEtiapine FUMARATE 25 MG TAB PO SCH ×2 (07:58→16:00)
[2016-10-10] MEDS: LISINOPRIL 20 MG TAB PO SCH (07:59)
[2016-10-10] MEDS: ASPIRIN EC 81 MG TABEC PO SCH (07:59)
--- NOTE | 2016-10-10 09:45 | HHI.PR ---
Subjective Remarks The pt appeared to be in a cheerful mood. She was standing by the window. No acute complaints. Objective Vitals I/O 10/09/16 10/09/16 10/09/16 10/10/16 10/10/16 10/10/16 07:00 15:00 23:00 07:00 15:00 23:00 Intake Total 120 ml 240 ml 600 ml 0 ml Balance 120 ml 240 ml 600 ml 0 ml Intake Oral 120 ml 240 ml 600 ml 0 ml # Voids 1 2 1 Imaging Last Impressions Head CT 09/30/16 0000 Signed Impressions: Service Date/Time: Friday, September 30, 2016 02:23 - CONCLUSION: No acute findings. Significant hypodensity of the supratentorial white matter suggesting ischemic demyelination. Leodan Silverio MD Chest X-Ray 09/29/16 0000 Signed Impressions: Service Date/Time: Thursday, September 29, 2016 20:25 - CONCLUSION: No evidence of acute cardiopulmonary disease. Magdy Scales MD Objective Remarks GENERAL: Resting comfortably. SKIN: No rashes, ecchymoses or lesions. Cool and dry. HEAD: Atraumatic. Normocephalic. EYES: Pupils equal round and reactive. Extraocular motions intact. No scleral icterus. No injection or drainage. ENT: Nose without bleeding, Throat without erythema, tonsillar hypertrophy or exudate. Uvula midline. Airway patent. NECK: Trachea midline. No JVD or lymphadenopathy. Supple, nontender, no meningeal signs. CARDIOVASCULAR: Regular rate and rhythm without murmurs, gallops, or rubs. RESPIRATORY: Clear to auscultation. Breath sounds equal bilaterally. No wheezes , rales, or rhonchi. GASTROINTESTINAL: Abdomen soft, non-tender, nondistended. No hepato-splenomegaly , or palpable masses. No guarding. MUSCULOSKELETAL: Extremities without clubbing, cyanosis, or edema. No joint tenderness, effusion, or edema noted. NEUROLOGICAL: Awake and alert. Cranial nerves II through XII intact. Motor and sensory grossly within normal limits. Five out of 5 muscle strength in all muscle groups. Normal speech. PSYCH: Mood and affect appropriate. Medications and IVs Current Medications Medications (Trade) Dose Ordered Sig/Kp Route Start Time Stop Time Status Last Admin (Ativan) 0.5 mg Q12H PRN PO 09/23/16 13:15 Future Hold (Ativan Inj) 0.5 mg Q12H PRN IM 09/23/16 13:15 Future Hold 10/05/16 15:19 (Tylenol) 650 mg Q4H PRN PO 09/24/16 10:15 (Milk Of Magnesia Liq) 30 ml DAILY PRN PO 09/24/16 10:15 (Mag-Al Plus Susp Liq) 30 ml Q6H PRN PO 09/24/16 10:15 (SEROquel) 25 mg BID@09,16 PO 09/29/16 16:00 10/10/16 07:58 (Nitrostat Sl) 0.4 mg Q5M PRN SL 09/29/16 20:30 (Ecotrin Ec) 81 mg DAILY PO 10/05/16 10:45 10/10/16 07:59 (Apresoline Inj) 10 mg Q30M PRN IV PUSH 10/05/16 16:15 (Prinivil) 20 mg DAILY PO 10/08/16 19:15 10/10/16 07:59 (Vasotec Inj) 2.5 mg Q6H PRN IV PUSH 10/08/16 19:15 10/08/16 19:47 Miscellaneous Information 1 Q7D T-DERMAL 10/15/16 21:00 (Catapres) 0.1 mg Q6H PRN PO 10/08/16 21:30 10/08/16 22:40 A/P Problem List: (1) Uncontrolled hypertension ICD Code: I10 - Essential (primary) hypertension (2) Dementia in other diseases classified elsewhere with behavioral disturbance ICD Code: F02.81 - Dementia in other diseases classified elsewhere with behavioral disturbance Status: Acute (3) Noncompliance with medication regimen ICD Code: Z91.14 - Patient's other noncompliance with medication regimen Status: Acute Assessment and Plan Dementia - Management per psychiatry. Uncontrolled HTN Patient denies any history, but unreliable. EKG no ischemic changes. Does not take medications as directed. Improved. - Heart healthy diet. - Continue clonidine patch at 0.2 mg. - lisinopril 20 mg daily added. Adjust as needed. Hypotension Likely medication induced. Now has been persistently hypertensive. - Continue to monitor BP while on clonidine patch. Abnormal head CT Head CT showed no acute findings, however there is significant hypodensity of the supratentorial white matter suggesting ischemic demyelination. Appreciate neurology efforts - patient refused neurological evaluation. - Started the patient on low dose aspirin. PPx: Ambulation Discharge Planning Per psych Ric Byrne DO Oct 10, 2016 09:45
--- NOTE | 2016-10-10 13:09 | HHI.PYPN ---
Subjective Remarks Demented. Confused. Unable to care for herself. Reviewed chart and spoke with patient's nurse. Review of Systems Except as stated in HPI: all other systems reviewed are Neg Objective Alert: Yes [place]: Person Mood: Calm Affect: Other (slight decreased range and intensity) Memory Intact: Comment (impaired) Hallucinations: Other (denies) Delusions: Yes Delusion Type: Paranoid Suicidal: Ideation (denies) Homicidal: Ideation (denies) Insight/Judgment Impaired Labs Date/Time Source Procedure Growth Status 09/29/16 22:34 Blood Peripheral Aerobic Blood Culture - Final NO GROWTH IN 5 DAYS Complete 09/29/16 22:34 Blood Peripheral Anaerobic Blood Culture - Final NO GROWTH IN 5 DAYS Complete Vitals/IOs Vital Signs Date Time Temp Pulse Resp B/P (MAP) Pulse Ox O2 Delivery O2 Flow Rate FiO2 10/09/16 06:20 97.6 17 16 161/70 (100) 100 Intake and Output 10/10/16 10/10/16 10/11/16 08:00 16:00 00:00 Intake Total 0 ml Balance 0 ml Assessment & Plan Problem List: (1) Dementia in other diseases classified elsewhere with behavioral disturbance ICD Codes: F02.81 - Dementia in other diseases classified elsewhere with behavioral disturbance Status: Acute (2) Alzheimer's dementia with behavioral disturbance ICD Codes: G30.8 - Other Alzheimer's disease; F02.81 - Dementia in other diseases classified elsewhere with behavioral disturbance Status: Acute Assessment & Plan Estimated LOS: days no change Justification for Cont. Inpt. Unable to care for self Patrick Siddiqui MD Oct 10, 2016 13:08
[2016-10-11] MEDS: LISINOPRIL 20 MG TAB PO SCH (07:53)
[2016-10-11] MEDS: QUEtiapine FUMARATE 25 MG TAB PO SCH ×2 (07:53→16:00)
[2016-10-11] MEDS: ASPIRIN EC 81 MG TABEC PO SCH (07:53)
--- NOTE | 2016-10-11 10:15 | HHI.PR ---
Subjective Remarks The patient said it was cold in her room and was wondering if the temperature could be warmer. Nursing states that the patient has been refusing blood pressure measurements and has not been taking her medications regularly. Objective Vitals I/O 10/10/16 10/10/16 10/10/16 10/11/16 10/11/16 10/11/16 07:00 15:00 23:00 07:00 15:00 23:00 Intake Total 0 ml 0 ml 120 ml Balance 0 ml 0 ml 120 ml Intake Oral 0 ml 0 ml 120 ml # Voids 1 0 Imaging Last Impressions Head CT 09/30/16 0000 Signed Impressions: Service Date/Time: Friday, September 30, 2016 02:23 - CONCLUSION: No acute findings. Significant hypodensity of the supratentorial white matter suggesting ischemic demyelination. Leodan Silverio MD Chest X-Ray 09/29/16 0000 Signed Impressions: Service Date/Time: Thursday, September 29, 2016 20:25 - CONCLUSION: No evidence of acute cardiopulmonary disease. Magdy Scales MD Objective Remarks GENERAL: Resting comfortably. SKIN: No rashes, ecchymoses or lesions. Cool and dry. HEAD: Atraumatic. Normocephalic. EYES: Pupils equal round and reactive. Extraocular motions intact. No scleral icterus. No injection or drainage. ENT: Nose without bleeding, Throat without erythema, tonsillar hypertrophy or exudate. Uvula midline. Airway patent. NECK: Trachea midline. No JVD or lymphadenopathy. Supple, nontender, no meningeal signs. CARDIOVASCULAR: Regular rate and rhythm without murmurs, gallops, or rubs. RESPIRATORY: Clear to auscultation. Breath sounds equal bilaterally. No wheezes , rales, or rhonchi. GASTROINTESTINAL: Abdomen soft, non-tender, nondistended. No hepato-splenomegaly , or palpable masses. No guarding. MUSCULOSKELETAL: Extremities without clubbing, cyanosis, or edema. No joint tenderness, effusion, or edema noted. NEUROLOGICAL: Awake and alert. Cranial nerves II through XII intact. Motor and sensory grossly within normal limits. Five out of 5 muscle strength in all muscle groups. Normal speech. PSYCH: Mood and affect appropriate. Medications and IVs Current Medications Medications (Trade) Dose Ordered Sig/Kp Route Start Time Stop Time Status Last Admin (Ativan) 0.5 mg Q12H PRN PO 09/23/16 13:15 Future Hold (Ativan Inj) 0.5 mg Q12H PRN IM 09/23/16 13:15 Future Hold 10/05/16 15:19 (Tylenol) 650 mg Q4H PRN PO 09/24/16 10:15 (Milk Of Magnesia Liq) 30 ml DAILY PRN PO 09/24/16 10:15 (Mag-Al Plus Susp Liq) 30 ml Q6H PRN PO 09/24/16 10:15 (SEROquel) 25 mg BID@09,16 PO 09/29/16 16:00 10/11/16 07:53 (Nitrostat Sl) 0.4 mg Q5M PRN SL 09/29/16 20:30 (Ecotrin Ec) 81 mg DAILY PO 10/05/16 10:45 10/11/16 07:53 (Apresoline Inj) 10 mg Q30M PRN IV PUSH 10/05/16 16:15 (Prinivil) 20 mg DAILY PO 10/08/16 19:15 10/11/16 07:53 (Vasotec Inj) 2.5 mg Q6H PRN IV PUSH 10/08/16 19:15 10/08/16 19:47 Miscellaneous Information 1 Q7D T-DERMAL 10/15/16 21:00 (Catapres) 0.1 mg Q6H PRN PO 10/08/16 21:30 10/08/16 22:40 A/P Problem List: (1) Uncontrolled hypertension ICD Code: I10 - Essential (primary) hypertension (2) Dementia in other diseases classified elsewhere with behavioral disturbance ICD Code: F02.81 - Dementia in other diseases classified elsewhere with behavioral disturbance Status: Acute (3) Noncompliance with medication regimen ICD Code: Z91.14 - Patient's other noncompliance with medication regimen Status: Acute Assessment and Plan Dementia - Management per psychiatry. Uncontrolled HTN Patient denies any history, but unreliable. EKG no ischemic changes. Does not take medications as directed. Improved. Awaiting blood pressure readings 10/11. - Heart healthy diet. - Continue clonidine patch at 0.2 mg. - lisinopril 20 mg daily added. Adjust as needed. Hypotension Likely medication induced. Now has been persistently hypertensive. - Continue to monitor BP while on clonidine patch. Stable. Abnormal head CT Head CT showed no acute findings, however there is significant hypodensity of the supratentorial white matter suggesting ischemic demyelination. Appreciate neurology efforts - patient refused neurological evaluation. - Started the patient on low dose aspirin. PPx: Ambulation Discharge Planning Per psych Ric Byrne DO Oct 11, 2016 10:15
--- NOTE | 2016-10-11 18:52 | HHI.PYPN ---
Subjective Remarks No change Review of Systems Except as stated in HPI: all other systems reviewed are Neg Objective Alert: Yes [place]: Person Mood: Calm Affect: Other (slight decreased range and intensity) Memory Intact: Comment (impaired) Hallucinations: Other (denies) Delusions: Yes Delusion Type: Paranoid Suicidal: Ideation (denies) Homicidal: Ideation (denies) Insight/Judgment Impaired Labs Date/Time Source Procedure Growth Status 09/29/16 22:34 Blood Peripheral Aerobic Blood Culture - Final NO GROWTH IN 5 DAYS Complete 09/29/16 22:34 Blood Peripheral Anaerobic Blood Culture - Final NO GROWTH IN 5 DAYS Complete Vitals/IOs Vital Signs Date Time Temp Pulse Resp B/P (MAP) Pulse Ox O2 Delivery O2 Flow Rate FiO2 10/09/16 06:20 97.6 17 16 161/70 (100) 100 Intake and Output 10/11/16 10/11/16 10/12/16 08:00 16:00 00:00 Intake Total 0 ml 360 ml 120 ml Balance 0 ml 360 ml 120 ml Assessment & Plan Problem List: (1) Dementia in other diseases classified elsewhere with behavioral disturbance ICD Codes: F02.81 - Dementia in other diseases classified elsewhere with behavioral disturbance Status: Acute (2) Alzheimer's dementia with behavioral disturbance ICD Codes: G30.8 - Other Alzheimer's disease; F02.81 - Dementia in other diseases classified elsewhere with behavioral disturbance Status: Acute Assessment & Plan Estimated LOS: days placement Justification for Cont. Inpt. Unable to care for self Patrick Siddiqui MD Oct 11, 2016 18:52
[2016-10-12 05:51] VITALS: RESP 16; TEMP 98.1
[2016-10-12] MEDS: LISINOPRIL 20 MG TAB PO SCH (07:56)
[2016-10-12] MEDS: QUEtiapine FUMARATE 25 MG TAB PO SCH (07:56)
[2016-10-12] MEDS: ASPIRIN EC 81 MG TABEC PO SCH (07:56)
[2016-10-12] MEDS ORDERED: QUET1TAB7 PO (08:38)
[2016-10-12] MEDS ORDERED: LISI-515 PO (08:38)
[2016-10-12] MEDS ORDERED: ASPI-99 PO (08:38)
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
--- NOTE | 2016-10-12 11:35 | HHI.PR ---
Subjective Remarks The patient has not let anybody take her blood pressure measurements. She has no acute complaints. Objective Vitals Vital Signs Date Time Temp Pulse Resp B/P (MAP) Pulse Ox O2 Delivery O2 Flow Rate FiO2 10/12/16 05:51 98.1 16 I/O 10/11/16 10/11/16 10/11/16 10/12/16 10/12/16 10/12/16 07:00 15:00 23:00 07:00 15:00 23:00 Intake Total 0 ml 360 ml 120 ml 0 ml 120 ml Balance 0 ml 360 ml 120 ml 0 ml 120 ml Intake Oral 0 ml 360 ml 120 ml 0 ml 120 ml # Voids 0 0 1 Imaging Last Impressions Head CT 09/30/16 0000 Signed Impressions: Service Date/Time: Friday, September 30, 2016 02:23 - CONCLUSION: No acute findings. Significant hypodensity of the supratentorial white matter suggesting ischemic demyelination. Leodan Silverio MD Chest X-Ray 09/29/16 0000 Signed Impressions: Service Date/Time: Thursday, September 29, 2016 20:25 - CONCLUSION: No evidence of acute cardiopulmonary disease. Magdy Scales MD Objective Remarks GENERAL: Resting comfortably. SKIN: No rashes, ecchymoses or lesions. Cool and dry. HEAD: Atraumatic. Normocephalic. EYES: Pupils equal round and reactive. Extraocular motions intact. No scleral icterus. No injection or drainage. ENT: Nose without bleeding, Throat without erythema, tonsillar hypertrophy or exudate. Uvula midline. Airway patent. NECK: Trachea midline. No JVD or lymphadenopathy. Supple, nontender, no meningeal signs. CARDIOVASCULAR: Regular rate and rhythm without murmurs, gallops, or rubs. RESPIRATORY: Clear to auscultation. Breath sounds equal bilaterally. No wheezes , rales, or rhonchi. GASTROINTESTINAL: Abdomen soft, non-tender, nondistended. No hepato-splenomegaly , or palpable masses. No guarding. MUSCULOSKELETAL: Extremities without clubbing, cyanosis, or edema. No joint tenderness, effusion, or edema noted. NEUROLOGICAL: Awake and alert. Cranial nerves II through XII intact. Motor and sensory grossly within normal limits. Five out of 5 muscle strength in all muscle groups. Normal speech. PSYCH: Mood and affect appropriate. Medications and IVs Current Medications Medications (Trade) Dose Ordered Sig/Kp Route Start Time Stop Time Status Last Admin (Ativan) 0.5 mg Q12H PRN PO 09/23/16 13:15 Future Hold (Ativan Inj) 0.5 mg Q12H PRN IM 09/23/16 13:15 Future Hold 10/05/16 15:19 (Tylenol) 650 mg Q4H PRN PO 09/24/16 10:15 (Milk Of Magnesia Liq) 30 ml DAILY PRN PO 09/24/16 10:15 (Mag-Al Plus Susp Liq) 30 ml Q6H PRN PO 09/24/16 10:15 (SEROquel) 25 mg BID@,16 PO 09/29/16 16:00 10/12/16 07:56 (Nitrostat Sl) 0.4 mg Q5M PRN SL 09/29/16 20:30 (Ecotrin Ec) 81 mg DAILY PO 10/05/16 10:45 10/12/16 07:56 (Apresoline Inj) 10 mg Q30M PRN IV PUSH 10/05/16 16:15 (Prinivil) 20 mg DAILY PO 10/08/16 19:15 10/12/16 07:56 (Vasotec Inj) 2.5 mg Q6H PRN IV PUSH 10/08/16 19:15 10/08/16 19:47 Miscellaneous Information 1 Q7D T-DERMAL 10/15/16 21:00 (Catapres) 0.1 mg Q6H PRN PO 10/08/16 21:30 10/08/16 22:40 A/P Problem List: (1) Uncontrolled hypertension ICD Code: I10 - Essential (primary) hypertension (2) Dementia in other diseases classified elsewhere with behavioral disturbance ICD Code: F02.81 - Dementia in other diseases classified elsewhere with behavioral disturbance Status: Acute (3) Noncompliance with medication regimen ICD Code: Z91.14 - Patient's other noncompliance with medication regimen Status: Acute Assessment and Plan Dementia - Management per psychiatry. Uncontrolled HTN Patient denies any history, but unreliable. EKG no ischemic changes. Does not take medications as directed. Improved. Awaiting blood pressure readings 10/12. The patient continues to refuse blood pressure checks. - Heart healthy diet. - Continue clonidine patch at 0.2 mg. - lisinopril 20 mg daily added. Adjust as needed. Hypotension Likely medication induced. Now has been persistently hypertensive. - Continue to monitor BP while on clonidine patch. Stable. Abnormal head CT Head CT showed no acute findings, however there is significant hypodensity of the supratentorial white matter suggesting ischemic demyelination. Appreciate neurology efforts - patient refused neurological evaluation. - Started the patient on low dose aspirin. PPx: Ambulation Discharge Planning Per psych Ric Byrne DO Oct 12, 2016 11:35
[2016-10-15] MEDS ORDERED: REMOVE OLD PATCH T-DERMAL SCH (21:00)
== END 2016-10-12 12:10 | disposition short-term general hospital (02) | DRG 57 ==
LOC: NEPD 22:23 → NEDA 09-23 13:14 → H250 09-23 16:10 → H4EA 09-29 20:32
PROVIDERS: ADMIT Psychiatry & Neurology Psychiatry; ATTEND Psychiatry & Neurology Psychiatry
DX: G30.9 Alzheimer's disease, unspecified (principal); F02.81 Dementia in other diseases classified elsewhere, unspecified severity, with behavioral disturbance; Z91.83 Wandering in diseases classified elsewhere; I10 Essential (primary) hypertension; I95.2 Hypotension due to drugs; Z91.14 Patient's other noncompliance with medication regimen; T46.5X5A Adverse effect of other antihypertensive drugs, initial encounter
CPT/HCPCS: 70450; 71010; 80053; 80307; 81001; 82550; 82948; 83605; 84484; 85025; 87040; 93005; 99285; J1200; J1630; J2060